=== PATIENT | male | born 1970 | race Caucasian/White ===

== ENCOUNTER → 2017-11-04 | Emergency (ER) | payer BC ==
[~2017-11-04] VITALS: Ht 180.3 cm; Wt 113.4 kg
[~2017-11-04] MED LIST: DURAGESIC1 EAC4 TD; FENTANYL1 EACH TD; HYDROCODON-ACE1 EAC8 PO; NITROGLYCERIN0.4 MG SL; PERCOCET 5-3251 EACH PO; SENNA PLUS TAB1 EACH PO; TOPROL XL25 MG PO; ZOFRAN ODT4 MG PO
--- NOTE | 2017-11-06 14:04 | EKG ---
[facility] [address] [facility] [place] [address] Signed Normal sinus rhythm Borderline ECG No previous ECGs available Confirmed by OLVIN CRUZ MD ([id number] on 11/06/2017 2:04:49 PM Electronically Signed By: OLVIN CRUZ MD 11/06/17 1404 PATIENT NAME: JOEY JARAMILLO Electrocardiogram DATE OF : 68 PHYSICIAN: OLVIN CRUZ MD REPORT #: [id number] REPORT IS CONFIDENTIAL AND NOT TO BE RELEASED WITHOUT AUTHORIZATION
== END ==
LOC: ED 13:25
DX: R07.89 Other chest pain (principal); M54.9 Dorsalgia, unspecified; F17.200 Nicotine dependence, unspecified, uncomplicated
CPT/HCPCS: 71046; 80053; 83690; 84484; 85025; 93005; 93010; 99284

== ENCOUNTER 2017-11-27 20:41 | Emergency (ER) | payer BC ==
[~2017-11-27] VITALS: Ht 182.9 cm; Wt 112.5 kg
[~2017-11-27 20:41] MED LIST changes: -DURAGESIC1 EAC4 TD; -FENTANYL1 EACH TD; -PERCOCET 5-3251 EACH PO; -SENNA PLUS TAB1 EACH PO; -ZOFRAN ODT4 MG PO
[2017-12-07] MEDS ORDERED: PERCOCET 5-3251 EACH PO (10:00)
[2017-12-07] MEDS ORDERED: SENNA PLUS TAB1 EACH PO (10:01)
[2017-12-07] MEDS ORDERED: ZOFRAN ODT4 MG PO (10:02)
[2017-12-07] MEDS ORDERED: DURAGESIC1 EAC4 TD (10:02)
[2017-12-07] MEDS ORDERED: FENTANYL1 EACH TD (12:03)
== END 2017-11-27 21:26 | disposition home or self-care (01) ==
LOC: ED 20:41
DX: Z76.0 Encounter for issue of repeat prescription (principal); G89.3 Neoplasm related pain (acute) (chronic); R11.0 Nausea; C25.9 Malignant neoplasm of pancreas, unspecified; F17.200 Nicotine dependence, unspecified, uncomplicated; Z79.899 Other long term (current) drug therapy
CPT/HCPCS: 99281

== ENCOUNTER → 2017-12-07 | Emergency (ER) | payer BC ==
[~2017-12-07] VITALS: Ht 182.9 cm; Wt 112.5 kg
[~2017-12-07] MED LIST changes: +DURAGESIC1 EAC4 TD; +FENTANYL1 EACH TD; +PERCOCET 5-3251 EACH PO; +SENNA PLUS TAB1 EACH PO; +ZOFRAN ODT4 MG PO
--- OUTSIDE RECORDS SUMMARY | ~2017-12-07 | XMS | Clinical Summary ---
Demographics + + + | Address | [address] | | | [place] [address] | + + + | Home Phone | | + + + | Preferred Language | Unknown | + + + | Marital Status | Unmarried Domestic Partner | + + + | Synagogue Affiliation | CHR | + + + | Race | White | + + + | Ethnic Group | Not or | + + + Author + + + | Author | [facility] | + + + | Organization | [facility] | + + + | Address | Unknown | + + + | Phone | Unavailable | + + + Support + + + + + | Name | Relationship | Address | Phone | + + + + + | ROXANN BAÑUELOS | KAYE | [address] | | | | | # [place] | | | | | [address] | | + + + + + Care Team Providers + +------+ + | Care Professor Of Archaeology Name | Role | Phone | + +------+ + | Pepe Oakley DO | PP | | + +------+ + Source Comments EDY is fully live on both [facility] and [facility] InPatient.[facility] Allergies No Known Allergies Current Medications + + +--------+---------+------+------+-------+ | Prescription | Sig. | Disp. | Refills | Star | End | Statu | | | | | | t | Date | s | | | | | | Date | | | + + +--------+---------+------+------+-------+ | fentaNYL 12 mcg/hr | Apply 1 patch to | | | | | Activ | | transdermal patch | skin every | | | | | e | | | seventy-two hours. | | | | | | | | Please remove old | | | | | | | | patch prior to | | | | | | | | placing a new one. | | | | | | + + +--------+---------+------+------+-------+ | ondansetron ODT 4 | Dissolve 4 mg on | | | | | Activ | | mg oral | tongue and swallow | | | | | e | | tablet,disintegratin | every twelve hours | | | | | | | g | as needed. | | | | | | + + +--------+---------+------+------+-------+ | oxyCODONE | Take 4 tablets by | 90 | 0 | 03/2 | | Activ | | (immediate release) | mouth every six | tablet | | 7/20 | | e | | 5 mg oral | hours as needed for | | | 18 | | | | tabletIndications: | breakthrough pain. | | | | | | | Pain | Indications: Pain | | | | | | + + +--------+---------+------+------+-------+ | senna-docusate | Take 1 tablet by | 60 | 0 | 03/2 | | Activ | | 8.6-50 mg oral | mouth two times | tablet | | 7/20 | | e | | tablet | daily. | | | 18 | | | + + +--------+---------+------+------+-------+ Active Problems + + + | Problem | Noted Date | + + + | Pancreatic adenocarcinoma (HCC) | 12/06/2017 | + + + | Pancreatic mass | 12/03/2017 | + + + | Liver mass | 12/03/2017 | + + + | Hyperbilirubinemia | 12/03/2017 | + + + | Obstructive jaundice | 12/03/2017 | + + + Encounters +--------+ + + + + | Date | Type | Specialty | Care Team | Description | +--------+ + + + + | 12/05/ | Procedure | | | | | 2017 | Pass | | | | +--------+ + + + + | 12/05/ | Procedure | | | | | 2017 | Pass | | | | +--------+ + + + + | 12/05/ | Anesthesia | | Iglesia García, | | | 2017 | Event | | MD | | +--------+ + + + + | 12/05/ | Inside | | Maureen Fu MD | | | 2017 | Referral | | | | | | Order | | | | +--------+ + + + + | 12/03/ | Hospital | | Esperanza Modi, | | | 2018 - | Encounter | | PhD Katrin HATHAWAY Stan | | | | | | MD Hill Soto Rebekah | | | 12/06/ | | | MD Tank Higuera Bailey | | | 2018 | | | MD Alverto Higuera, | | | | | | Demian MD Kalen | | +--------+ + + + + +---+ + | | Discharge | | | Summaries | | | - Alverto, | | | Demian | | | MD Kalen - | | | 12/06/2017 | | | 10:10 AM | | | PDT | | | Formatting | | | of this | | | note may be | | | different | | | from the | | | original.Cl | | | inical | | | Hospitalist | | | Discharge | | | SummaryPCP: | | | Pepe | | | DO Karthikeyan | | | Author: | | | Demian | | | Alverto, | | | , | | | PhDDischarg | | | ing | | | Physician: | | | Demian | | | Alverto, | | | PhD MAG | | | Admission | | | Date: | | | 12/03/2017 | | | Discharge | | | Date: | | | 12/06/2017 | | | Principal | | | Final | | | Diagnosis: | | | 1) | | | Pancreatic | | | adenocarcin | | | amie | | | (HCC)Additi | | | onal | | | Diagnoses: | | | 1) | | | *Pancreatic | | | mass2) | | | Liver | | | mass3) | | | Hyperbiliru | | | binemia4) | | | Obstructive | | | | | | jaundicePro | | | cedures:Pro | | | cedures | | | 12/05/2017 - | | | ERCP/EUS | | | and biopsy | | | Reason For | | | Admission: | | | Ronni A | | | May is a 47 | | | y.o. Male | | | w/ hx of | | | pancreatic | | | cancer | | | diagnosed 3 | | | weeks ago | | | and | | | scheduled | | | for EUS | | | here | | | 12/16/17, and | | | presents | | | to [facility] for | | | acutely | | | worsening | | | abdominal | | | pain and 3 | | | days of new | | | onset | | | jaundice. | | | Hospital | | | Course: # | | | Pancreatic | | | Adenocarcin | | | amie (?)# | | | Obstructive | | | jaundice# | | | Transaminit | | | is# | | | Pancreatic | | | head | | | massPancrea | | | tic mass | | | first noted | | | Mar 6 that | | | | | | incorporate | | | s portal | | | vein and | | | enlarged | | | periportal | | | LNs, | | | several | | | ill-defined | | | liver | | | lesons and | | | in | | | outpatient | | | surgical | | | consultatio | | | n was | | | deemed | | | unresectabl | | | e. At that | | | time, had | | | severe abd | | | pain with | | | 10 lb | | | weight loss | | | and over | | | the past | | | month has | | | lost an | | | additional | | | 20 lbs by | | | report. CA | | | 19-9 >1200. | | | Had an EGD | | | done [facility] | | | in | | | [facility] | | | without | | | visualized | | | tumor | | | penetrating | | | into | | | antrum or | | | duodenum, | | | no bx | | | taken. On | | | transfer | | | to [facility], | | | his T bili | | | was 14.3 | | | and peaked | | | at 20, with | | | AST/ALT on | | | admission | | | 103/657 on | | | admission. | | | He | | | underwent | | | ERCP + EUS | | | and bx | | | completed | | | on | | | 12/05/2017 | | | with metal | | | stent | | | placement, | | | prelim | | | pathology | | | with | | | adenocarcin | | | amie. These | | | findings | | | were | | | discussed | | | with | | | oncology | | | who noted | | | that he | | | needed a CT | | | | | | abdomen/pel | | | vis | | | (pancreas | | | protocol) | | | and CT | | | chest prior | | | to making | | | decisions | | | about | | | treatment. | | | These were | | | obtained | | | on day of | | | discharge | | | with | | | results | | | pending at | | | time of | | | discharge. | | | LFTs on | | | day of | | | discharge/d | | | ay after | | | metal stent | | | placement | | | showed | | | significant | | | | | | improvement | | | in T bili | | | and | | | AST/ALT. | | | He was seen | | | by [facility] | | | Surgery as | | | well, who | | | recommended | | | a Genetics | | | referral | | | given his | | | young age | | | of | | | pancreatic | | | cancer and | | | family hx | | | of breast | | | cancer and | | | thyroid | | | cancer.-Has | | | Oncology | | | follow-up | | | on | | | 12/12-Referra | | | l to our | | | Gold | | | surgery-Ref | | | erral to | | | Genetics # | | | Abdominal | | | PainPatient | | | with | | | significant | | | cancer | | | pain, | | | difficult | | | to control | | | without | | | regular | | | oral | | | medications | | | . Continued | | | home | | | fentanyl | | | patch | | | discussed | | | transition | | | from home | | | [place]jou to | | | oxycodone. | | | On day of | | | discharge, | | | he | | | requested | | | that | | | oxycodone | | | be used in | | | place of | | | norco as | | | oxy | | | provides | | | optimal | | | pain | | | relief. | | | Thus will | | | continue | | | home | | | fentanyl | | | patch and | | | oxycodone | | | q6h prn for | | | | | | breakthroug | | | h pain. | | | His | | | abdominal | | | pain | | | improved | | | significant | | | ly after | | | metal stent | | | | | | placement. 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 | | | [facility] | | | | | | Surgery/Dr. | | | | | | SheppardIma | | | ges/procedu | | | res:US | | | Liver | | | 12/03/17IMPR | | | ESSION:1. | | | Known | | | pancreatic | | | mass is | | | incompletel | | | y evaluated | | | due to | | | bowel gas. | | | 2. | | | Intra-and | | | extrahepati | | | c biliary | | | dilatation | | | is mildly | | | increased | | | since | | | 11/15/2017.3. 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 | | | The | | | esophagus | | | was | | | successfull | | | y intubated | | | | | | under | | | direct | | | vision. The | | | scope was | | | advanced to | | | a normal | | | major | | | papilla in | | | the | | | descending | | | duodenum | | | without | | | detailed | | | examination | | | of the | | | pharynx, | | | | | | larynx and | | | associated | | | structures, | | | and upper | | | GI tract. | | | The upper | | | GI tract | | | was | | | grossly | | | normal. A | | | straight | | | 0.035 inch | | | Tracer | | | Metro | | | Direct wire | | | was | | | passed | | | into the | | | biliary | | | tree. The | | | Fusion OMNI | | | | | | sphincterot | | | ome was | | | passed | | | over | | | the | | | guidewire | | | and the | | | bile duct | | | was then | | | deeply | | | cannulated. | | | | | | Contrast | | | was | | | injected. I | | | personally | | | | | | interpreted | | | the bile | | | duct | | | images. | | | | | | Ductal flow | | | of | | | contrast | | | was | | | adequate. | | | Image | | | quality was | | | adequate. | | | | | | Contrast | | | extended to | | | the entire | | | biliary | | | tree. The | | | lower third | | | of the | | | | | | main bile | | | duct | | | contained a | | | single | | | severe | | | stenosis 20 | | | mm in | | | length. The | | | | | | middle | | | third of | | | the main | | | bile duct, | | | upper third | | | of the | | | main bile | | | duct | | | and left | | | and right | | | hepatic | | | ducts and | | | all | | | intrahepati | | | c branches | | | were | | | severely | | | and | | | diffusely | | | dilated. | | | One 10 mm | | | by 6 cm | | | bare metal | | | stent was | | | | | | placed 5.5 | | | cm into the | | | common | | | bile duct. | | | Bile flowed | | | through | | | the stent. | | | The | | | stent was | | | in good | | | position.Im | | | pression: | | | | | | - A | | | severe | | | biliary | | | stricture | | | was found. | | | The | | | stricture | | | | | | | | | | | | was | | | malignant | | | appearing. | | | This was | | | treated | | | with | | | placement | | | | | | | | | | | | of bare | | | metal stent | | | into the | | | common bile | | | | | | duct.Releva | | | nt | | | HPI/Exam/La | | | bs:Discharg | | | e physical | | | examVital | | | Signs at | | | discharge:B | | | P: 141/70 | | | | | | (12/06/17 | | | 0625) | | | Pulse: 73 | | | | | | (12/06/17 | | | 0625) | | | Resp: 16 | | | | | | (12/06/17 | | | 0625) | | | Weight: | | | 110.2 kg | | | (243 lb) | | | | | | (12/05/17 | | | 1300) Body | | | mass index | | | is 32.96 | | | kg/m .Disc | | | harge | | | weight:- Wt | | | Readings | | | from Last 1 | | | | | | Encounters: | | | 12/05/17 | | | 110.2 kg | | | (243 lb) | | | Gen: | | | Walking | | | halls, NAD, | | | visibly | | | jaundicedHE | | | ENT: EOMI, | | | scleral | | | icterusCV:R | | | RR, nl | | | s1/s2, no | | | mrgPulm:cta | | | bAbd: soft, | | | | | | non-tender, | | | | | | non-distend | | | edExt: no | | | edemaNeuro: | | | A&O x3, | | | freely | | | moving all | | | extremities | | | , normal | | | gaitLabs at | | | Discharge: | | | Lab | | | Results | | | Component | | | Value Date | | | NA 137 | | | 12/06/2017 | | | K 3.6 | | | 12/06/2017 | | | CL 102 | | | 12/06/2017 | | | BICARB 26 | | | 12/06/2017 | | | BUN 11 | | | 12/06/2017 | | | CR 0.65 | | | 12/06/2017 | | | GLU 101 | | | 12/06/2017 | | | CA 8.5 | | | 12/06/2017 | | | AST 68 | | | 12/06/2017 | | | ALT 217 | | | 12/06/2017 | | | AP 609 | | | 12/06/2017 | | | TBILI 9.4 | | | 12/06/2017 | | | TP 6.4 | | | 12/06/2017 | | | ALB 3.0 | | | 12/06/2017 | | | Lab Results | | | Component | | | Value Date | | | WBC 9.74 | | | 12/06/2017 | | | RBC 4.52 | | | 12/06/2017 | | | HB 12.3 | | | (L) | | | 12/06/2017 | | | HCT 36.3 | | | (L) | | | 12/06/2017 | | | MCV 80.3 | | | 12/06/2017 | | | MCHC 33.9 | | | 12/06/2017 | | | RDW 49.1 | | | (H) | | | 12/06/2017 | | | PLT 280 | | | 12/06/2017 | | | MPV 10.1 | | | 12/06/2017 | | | NRBCPERC | | | 0.0 | | | 12/06/2017 | | | NRBCABS | | | 0.00 | | | 12/06/2017 | | | Lab Results | | | Component | | | Value Date | | | INRPT 0.96 | | | 12/05/2017 | | | Lab | | | Results | | | Component | | | Value Date | | | CEA 2.4 | | | 12/06/2017 | | | Outstanding | | | | | | labs/studie | | | s: EUS | | | biopsy Core | | | | | | Measures:Di | | | agnosis of | | | CHF: No | | | Medication | | | List START | | | taking | | | these | | | medications | | | oxyCODONE | | | (immediate | | | release) 5 | | | mg | | | TabCommonly | | | known as: | | | | | | ROXICODONET | | | efrain 4 | | | tablets by | | | mouth every | | | six hours | | | as needed | | | for | | | breakthroug | | | h pain. | | | Indications | | | : Pain | | | senna-docus | | | ate 8.6-50 | | | mg | | | TabCommonly | | | known as: | | | SENOKOT | | | STake 1 | | | tablet by | | | mouth two | | | times | | | daily. | | | CONTINUE | | | taking | | | these | | | medications | | | fentaNYL | | | 12 mcg/hr | | | patchCommon | | | ly known | | | as: | | | DURAGESICAp | | | ply 1 patch | | | to skin | | | every | | | seventy-two | | | hours. | | | Please | | | remove old | | | patch prior | | | to placing | | | a new one. | | | | | | ondansetron | | | ODT 4 mg | | | TbdiCommonl | | | y known as: | | | ZOFRAN | | | ODTDissolve | | | 4 mg on | | | tongue and | | | swallow | | | every | | | twelve | | | hours as | | | needed. | | | STOP taking | | | these | | | medications | | | | | | HYDROcodone | | | -acetaminop | | | hen 10-325 | | | mg | | | TabCommonly | | | known as: | | | NORCO | | | Allergies: | | | No Known | | | AllergiesFo | | | llow-up | | | Appointment | | | s:Future | | | Appointment | | | s | | | Provider | | | Department | | | Dept Phone | | | Center | | | 12/12/2017 | | | 8:30 AM | | | [facility] | | | [facility] | | | Cancer | | | Center - | | | Medical | | | Oncology | | | [phone] | | | [facility] | | | [facility] | | | 12/12/2017 | | | 2:20 PM [facility] | | | PHONE/RN | | | CLIN [facility] | | | Preoperativ | | | e Medicine | | | Clinic at | | | [facility] 4[facility] | | | Floor Day | | | Stay | | | [phone] | | | 0 [facility] | | | 12/16/2017 | | | 12:15 PM | | | [facility] | | | [facility] | | | Digestive | | | Health | | | Center at | | | [facility] 4[facility] | | | Floor | | | [phone] | | | 3 Dig | | | Health | | | Additional | | | Instruction | | | s/Orders:Di | | | et Regular | | | Regular | | | diet- There | | | are no | | | restriction | | | s to your | | | diet. You | | | may eat or | | | drink | | | whatever | | | you prefer, | | | though | | | healthy | | | food | | | choices are | | | | | | recommended | | | . Activity | | | No activity | | | | | | restriction | | | s Condition | | | on | | | Discharge | | | Good Who To | | | Call For | | | Problems | | | HOW TO | | | REACH YOUR | | | MEDICINE | | | TEAM WITH | | | QUESTIONS, | | | CONCERNS, | | | OR NEW | | | SYMPTOMS: | | | Thank you | | | for | | | entrusting | | | your care | | | to [facility] | | | Internal | | | Medicine. | | | If you have | | | any | | | problems or | | | concerns | | | before you | | | are able to | | | follow up | | | with your | | | Primary | | | Care | | | Provider, | | | please call | | | [phone] | | | [phone] | | | and ask the | | | soldering machine operator | | | to page the | | | attending | | | physician, | | | Maureen A | | | MD Tank, | | | who was | | | caring for | | | you at | | | discharge. | | | If that | | | physician | | | is not | | | available, | | | ask the | | | soldering machine operator to | | | page the | | | physician | | | seasonal package handler for | | | the | | | Clinical | | | Hospitalist | | | | | | Service.Ezio | | | l us right | | | away if any | | | of the | | | following | | | occur:-You | | | have | | | new/worseni | | | ng | | | abdominal | | | pain-You've | | | noticed | | | that you | | | are turning | | | more | | | yellowDisch | | | arge | | | Destination | | | : Home Code | | | Status: | | | FullPOLST | | | completed: | | | no | | | Discharging | | | Physician: | | | Demian | | | Alverto, | | | MD, | | | PhDAttendin | | | g | | | Physician: | | | Demian | | | Al[place], | | | MD, PhD I | | | spent more | | | than 33 | | | minutes | | | face-to-fac | | | e with the | | | patient of | | | which | | | greater | | | than 50% | | | was spent | | | counseling | | | the patient | | | and in | | | coordinatin | | | g care with | | | Nursing | | | and [facility] | | | Surgery. | +---+ + +--------+ +---+ + + | 12/02/ | Outside | | Ronnell Pabon MD | | | 2018 | Referral | | | | | | Order | | | | +--------+ +---+ + + | 12/02/ | [facility] Specialist | | Albaro Vences | Pancreatic mass | | 2017 | | | MD Wenceslao | (Primary Dx) | +--------+ +---+ + + | 12/02/ | Documentati | | Lab, Gi Procedure | Medical Records | | 2017 | on | | | Review | +--------+ +---+ + + from Last 3 Months Family History + + +------+ + | Medical History | Relation | Name | Comments | + + +------+ + | None | Father | | | + + +------+ + | Cancer | Mother | | Breast | + + +------+ + | Thyroid | Mother | | | + + +------+ + + +------+--------+ + | Relation | Name | Status | Comments | + +------+--------+ + | Father | | | | + +------+--------+ + | Mother | | | | + +------+--------+ + Social History + + + +--------+------+ | Tobacco Use | Types | Packs/Day | Years | Date | | | | | Used | | + + + +--------+------+ | Current Every Day | Cigarettes | 2 | 30 | | | Smoker | | | | | + + + +--------+------+ + +---+---+---+ | Smokeless Tobacco: | | | | | Never Used | | | | + +---+---+---+ + + +---------+ + | Alcohol Use | Drinks/We | oz/Week | Comments | | | ek | | | + + +---------+ + | No | | | never alcoholic | + + +---------+ + + + + | Sex Assigned at | Date Recorded | | | | + + + | Not on file | | + + + Last Filed Vital Signs + + + + | Vital Sign | Reading | Time Taken | + + + + | Blood Pressure | 129/65 | 12/06/2017 8:40 AM PDT | + + + + | Pulse | 85 | 12/06/2017 8:40 AM PDT | + + + + | Temperature | 36.9 C (98.4 F) | 12/06/2017 8:40 AM PDT | + + + + | Respiratory Rate | 16 | 12/06/2017 8:40 AM PDT | + + + + | Oxygen Saturation | 95% | 12/06/2017 8:40 AM PDT | + + + + | Inhaled Oxygen | - | - | | Concentration | | | + + + + | Weight | 110.2 kg (243 lb) | 12/05/2017 1:00 PM PDT | + + + + | Height | 182.9 cm (6') | 12/05/2017 1:00 PM PDT | + + + + | Body Mass Index | 32.96 | 12/05/2017 1:00 PM PDT | + + + + Plan of Treatment +--------+ + + + + | Date | Type | Specialty | Care Team | Description | +--------+ + + + + | 12/12/ | Office | | Fang Barton, | | | 2017 | Visit | | [address] | | | | | | [place] | | | | | | [address] | | | | | | [phone] | | | | | | | | +--------+ + + + + | 12/12/ | Telephone-S | | | | | 2017 | cheyessicaled | | | | +--------+ + + + + | 12/16/ | Hospital | | Barney Leger, | | | 2018 | Encounter | | [address] | | | | | | [address] | | | | | | [place], [place] | | | | | | [address] | | | | | | [phone] | | | | | | | | +--------+ + + + + | 12/16/ | Appointment | | Barney Leger, | | | 2017 | | | [address] | | | | | | [address] | | | | | | [place], [place] | | | | | | [address] | | | | | | [phone] | | | | | | | | +--------+ + + + + + + + + + | Health Maintenance | Due Date | Last Done | Comments | + + + + + | INFLUENZA VACCINE | | | | | (FLU SHOT) | 7 | | | + + + + + Procedures + +--------+ + + + | Procedure Name | Priori | Date/Time | Associated Diagnosis | Comments | | | ty | | | | + +--------+ + + + | ERCP | Routin | 12/05/2017 | Hyperbilirubinemia | Results for this | | | e | 2:13 PM | | procedure are in the | | | | PDT | | results section. | + +--------+ + + + | EUS UPPER | Routin | 12/05/2017 | Hyperbilirubinemia | Results for this | | | e | 1:38 PM | | procedure are in the | | | | PDT | | results section. | + +--------+ + + + from Last [address] MULTIPHASE PANCREAS AND PELVIS W IV CONTRAST (12/06/2017 10:28 AM) + + + | Specimen | Performing Laboratory | + + + | | [facility] | + + + + + | Narrative | + + | EXAM: Pancreas protocol CT of the abdomen with and without contrast. CT of the | | chest, abdomen pelvis with intravenous contrast. HISTORY: Pancreatic cancer | | COMPARISON: Outside study 11/15/17 TECHNIQUE: Unenhanced, arterial, and portal venous | | abdominal CT with 125 mL Omnipaque 350 non-ionic intravenous contrast. CT of the | | chest, abdomen, and pelvis performed in the portal venous phase. Coronal and sagittal | | reformats were reviewed. FINDINGS: THORAX: Calcified nodule within the right | | thyroid gland (19/8) measuring 9 mm. No axillary, or mediastinal adenopathy. No | | cardiomegaly. No significant pericardial effusion. Trace fluid noted within the | | pericardium measuring up to 4 mm (127/80). The lungs are clear without evidence of | | suspicious nodule. Bibasilar scarring and atelectasis. No pleural effusion. | | PANCREATICOBILIARY: Again identified is an infiltrative mass centered at the head of the | | pancreas extending to the neck of the pancreas with desmoplastic response in | | infiltrative soft tissue extending to the level of the celiac artery. On today's | | examination, the mass measures 6.4 x 4.2 cm (197/8). No significant ductal dilatation or | | atrophy mild inflammatory changes of the body and tail of pancreas likely | | postprocedural status post stent placement. Arterial Invasion: YES. Complete encasement | | of the hepatic artery (86/05). Soft tissue encroaching upon the superior mesenteric | | artery Variant Arterial Anatomy: YES the right hepatic artery is replaced and | | originates from the superior mesenteric artery, and traverses the mass with severe | | attenuation in a 360deg fashion (100/5). Portal/Mesenteric Venous Invasion: Complete | | encasement of the portal vein, with recanalization at the level of the hilum (203/8). | | The mass likely invades the portal vein at this segment, however recannulized segments | | do not demonstrate portal venous thrombosis. Regional Nodes: Retroperitoneal | | enlarged lobulated lymph node measuring 2.1 x 3.9 cm (180/8). Gallbladder decompressed. | | Intrahepatic biliary ductal dilatation has been ameliorated by A. common biliary ductal | | stent. LIVER: Innumerable low density lesions scattered throughout the liver | | parenchyma, some of which are well-circumscribed and likely characterized as simple | | cysts. Others are too small to fully characterize, and are suspicious for metastasis | | (127/80) within segment 7/8 measuring 5 mm; 8 mm (158/80) within segment 7/8;. SPLEEN: | | Unremarkable. ADRENALS: Unremarkable. KIDNEYS/URETERS: Unremarkable. PELVIC | | ORGANS: Unremarkable. PERITONEUM: Mild peritoneal thickening along the left | | paracolic cutter (third 49/8 without measurable nodularity, suspicious for | | carcinomatosis. LYMPH NODES: Borderline retroperitoneal adenopathy. VESSELS: Moderate | | atherosclerotic burden. No aneurysm. GI TRACT: No small bowel obstruction. No focal | | mass lesion. The mass likely invades and involves the first through third portions of | | the duodenum which are mildly thick walled. The stomach is mildly thick walled as well | | like the reactive. No evidence of obstruction. Normal appendix. Scattered diverticulosis | | without inflammatory change to suggest diverticulitis. BONES AND SOFT TISSUES: | | Unremarkable. IMPRESSION: Locally advanced pancreatic cancer, with involvement | | of the common hepatic, and replaced right hepatic artery, and complete encasement of the | | portal vein with recanalization at the level of the intrahepatic system. Possible | | metastatic disease to the liver and peritoneum. MRI would be helpful for further | | characterization of hepatic lesions and overall metastatic burden as a baseline. | | I have personally reviewed the images and, if necessary, edited the report. I agree | | with the report as now presented. | + + + + | Procedure Note | + + | Service Account, Radiant Res In Interface - 12/06/2017 11:09 AM PDT EXAM: Pancreas | | protocol CT of the abdomen with and without contrast. CT of the chest, abdomen pelvis | | with intravenous contrast.HISTORY: Pancreatic cancerCOMPARISON: Outside study | | 11/15/17TECHNIQUE: Unenhanced, arterial, and portal venous abdominal CT with 125 mL | | Omnipaque 350 non-ionic intravenous contrast. CT of the chest, abdomen, and pelvis | | performed in the portal venous phase. Coronal and sagittal reformats were | | reviewed.FINDINGS:THORAX: Calcified nodule within the right thyroid gland (19/8) | | measuring 9 mm. No axillary, or mediastinal adenopathy. No cardiomegaly. No significant | | pericardial effusion. Trace fluid noted within the pericardium measuring up to 4 mm | | (127/80).The lungs are clear without evidence of suspicious nodule. Bibasilar scarring | | and atelectasis. No pleural effusion.PANCREATICOBILIARY: Again identified is an | | infiltrative mass centered at the head of the pancreas extending to the neck of the | | pancreas with desmoplastic response in infiltrative soft tissue extending to the level | | of the celiac artery. On today's examination, the mass measures 6.4 x 4.2 cm (197/8). No | | significant ductal dilatation or atrophy mild inflammatory changes of the body and tail | | of pancreas likely postprocedural status post stent placement.Arterial Invasion: YES. | | Complete encasement of the hepatic artery (86/05). Soft tissue encroaching upon the | | superior mesenteric arteryVariant Arterial Anatomy: YES the right hepatic artery is | | replaced and originates from the superior mesenteric artery, and traverses the mass with | | severe attenuation in a 360deg fashion (100/5).Portal/Mesenteric Venous Invasion: | | Complete encasement of the portal vein, with recanalization at the level of the hilum | | (203/8). The mass likely invades the portal vein at this segment, however recannulized | | segments do not demonstrate portal venous thrombosis.Regional Nodes: Retroperitoneal | | enlarged lobulated lymph node measuring 2.1 x 3.9 cm (180/8).Gallbladder decompressed. | | Intrahepatic biliary ductal dilatation has been ameliorated by A. common biliary ductal | | stent.LIVER: Innumerable low density lesions scattered throughout the liver parenchyma, | | some of which are well-circumscribed and likely characterized as simple cysts. Others | | are too small to fully characterize, and are suspicious for metastasis (127/80) within | | segment 7/8 measuring 5 mm; 8 mm (158/80) within segment 7/8;.SPLEEN: | | Unremarkable.ADRENALS: Unremarkable.KIDNEYS/URETERS: Unremarkable.PELVIC ORGANS: | | Unremarkable.PERITONEUM: Mild peritoneal thickening along the left paracolic cutter | | (third 49/8 without measurable nodularity, suspicious for carcinomatosis.LYMPH NODES: | | Borderline retroperitoneal adenopathy.VESSELS: Moderate atherosclerotic burden. No | | aneurysm.GI TRACT: No small bowel obstruction. No focal mass lesion. The mass likely | | invades and involves the first through third portions of the duodenum which are mildly | | thick walled. The stomach is mildly thick walled as well like the reactive. No evidence | | of obstruction. Normal appendix. Scattered diverticulosis without inflammatory change to | | suggest diverticulitis.BONES AND SOFT TISSUES: Unremarkable.IMPRESSION:Locally advanced | | pancreatic cancer, with involvement of the common hepatic, and replaced right hepatic | | artery, and complete encasement of the portal vein with recanalization at the level of | | the intrahepatic system.Possible metastatic disease to the liver and peritoneum. MRI | | would be helpful for further characterization of hepatic lesions and overall metastatic | | burden as a baseline.I have personally reviewed the images and, if necessary, edited the | | report. I agree with the report as now presented. | + + CBC (HEMOGRAM) ONLY (12/06/2017 5:30 AM)Only the most recent of 2 results within the time period is included. + + + + | Component | Value | Ref Range | + + + + | WHITE CELL COUNT | 9.74 | 3.50 - 10.80 K/cu mm | + + + + | RED CELL COUNT | 4.52 | 4.50 - 6.00 M/cu mm | + + + + | HEMOGLOBIN | 12.3 (L) | 13.5 - 17.5 g/dL | + + + + | HEMATOCRIT | 36.3 (L) | 41.0 - 53.0 % | + + + + | MCV | 80.3 | 80.0 - 96.0 fL | + + + + | MCHC | 33.9 | 33.0 - 35.5 g/dL | + + + + | RDW SD | 49.1 (H) | 35.1 - 46.3 fL | + + + + | PLATELET COUNT | 280 | 150 - 400 K/cu mm | + + + + | MPV | 10.1 | 9.7 - 12.3 fL | + + + + | NRBC% | 0.0 | 0.0 - 0.3 % | + + + + | NRBC# | 0.00 | 0.00 - 0.02 K/cu mm | + + + + + + + | Specimen | Performing Laboratory | + + + | Blood | [facility], [facility] [address] | | | [facility] [address] | + + + CARCINOEMBRYONIC AG, SERUM (12/06/2017 5:30 AM) + +-------+ + | Component | Value | Ref Range | + +-------+ + | CEA-CARCINOEMBRYONIC | 2.4 | <=2.5 ng/mL | | AG, SERUM | | | + +-------+ + + + + | Specimen | Performing Laboratory | + + + | Blood | [facility], [address] [address] | | | [place] [address] | + + + COMPLETE METABOLIC SET (NA,K,CL,CO2,BUN,CREAT,GLUC,CA,AST,ALT,BILI TOTAL,ALK PHOS,ALB,PROT TOTAL) (12/06/2017 5:30 AM)Only the most recent of 4 results within the time period is incl uded. + + + + | Component | Value | Ref Range | + + + + | GLUCOSE, PLASMA | 101 (H) | 70 - 99 mg/dL | | (LAB) | | | + + + + | BUN, PLASMA (LAB) | 11 | 6 - 20 mg/dL | + + + + | CREATININE PLASMA | 0.65 (L) | 0.70 - 1.30 mg/dL | | (LAB) | | | + + + + | EGFR - | >60 | >60 mL/min | | [place] | | | + + + + | EGFR NON | >60 | >60 mL/min | | -MONEGASQUE | | | + + + + | SODIUM, PLASMA (LAB) | 137 | 136 - 145 mmol/L | + + + + | POTASSIUM, PLASMA | 3.6 | 3.4 - 5.0 mmol/L | | (LAB) | | | + + + + | CHLORIDE, PLASMA | 102 | 97 - 108 mmol/L | | (LAB) | | | + + + + | TOTAL CO2, PLASMA | 26 | 21 - 32 mmol/L | | (LAB) | | | + + + + | CALCIUM, PLASMA | 8.5 (L) | 8.6 - 10.2 mg/dL | | (LAB) | | | + + + + | CALCIUM(ALB | 9.3 | 8.6 - 10.2 mg/dL | | CORRECTED) | | | + + + + | BILIRUBIN TOTAL | 9.4 (H) | 0.3 - 1.2 mg/dL | + + + + | TOTAL PROTEIN, | 6.4 | 6.4 - 8.2 g/dL | | PLASMA (LAB) | | | + + + + | ALBUMIN, PLASMA | 3.0 (L) | 3.5 - 4.7 g/dL | | (LAB) | | | + + + + | ALK PHOS | 609 (H) | 53 - 128 U/L | + + + + | AST(SGOT) | 68 (H) | <=41 U/L | + + + + | ALT (SGPT) | 217 (H) | <=60 U/L | + + + + | ANION GAP | 9 | 4 - 11 mmol/L | + + + + | ANION GAP(ALB | 11 | 4 - 11 mmol/L | | CORRECTED) | | | + + + + | POTASSIUM CMNT | No Hemo | | + + + + | BILI T CMNT | No Hemo | | + + + + | AST CMNT | No Hemo | | + + + + + + + | Specimen | Performing Laboratory | + + + | Blood | [facility], [facility] [place] [address] | | | [place] [address] | + + + + + | Narrative | + + | Adult glucose reference range change effective 03-23-17. GFR is estimated using the | | MDRD equation recommended by the National Kidney Disease Education Program. | | Estimated GFR Interpretive Information: <60 mL/min/1.73 sq | | m Chronic Kidney Disease <15 mL/min/1.73 sq | | m Kidney Failure Estimated GFR greater that 60 mL/min/1.73 | | sq m is of limited clinical value. The MDRD equation is not valid in the following | | situations: - Patients under 18 years of age - Severe malnutrition or obesity - | | Vegetarian diet - Rapidly changing kidney function | + + CANCER AG GI (19-), SERUM (12/06/2017 5:30 AM) + + + + | Component | Value | Ref Range | + + + + | CANCER AG GI (19-9) | 2,371.5 (H) | <=37.0 U/mL | | [facility] | | | + + + + + + + | Specimen | Performing Laboratory | + + + | Blood | [facility], [address] [place] [address] | | | [place] [address] | + + + CBC ONLY (12/06/2017 5:30 AM)Only the most recent of 2 results within the time period is i ncluded. + + + | Specimen | Performing Laboratory | + + + | Blood | | + + + + + | Narrative | + + | The following orders were created for panel order CBC ONLY. | | Procedure | | Abnormality Status | | --------- | | ------ CBC (HEMOGRAM) | | ONLY[[id number]] Abnormal Final | | result Please view results for these tests on the | | individual orders. | + + ERCP (12/05/2017 2:13 PM) + + + | Specimen | Performing Laboratory | + + + | | [facility] | + + + + + | Narrative | + + | Procedure Date: 12/05/2017 Patient Name: Ronni Napier #: [id number] | | Date of : 1970 CSN: [id number] Admit Type: Inpatient Room: GI 3 | | Procedure: ERCP Indications: Jaundice, Malignant | | tumor of the head of pancreas Providers: BARNEY LEGER MD | | (Doctor), NJ CROWLEY RN (Nurse), SCOTTY | | (Meat Dresser), DORIS STALLINGS, | | Meat Dresser (Meat Dresser) Referring MD: AUDI KAMINSKI MD Requesting | | Provider: Medicines: Monitored Anesthesia Care | | Complications: No immediate complications. Procedure: | | Pre-Anesthesia Assessment: - Pre-procedure | | physical examination revealed no | | contraindications to sedation. - Airway | | Examination: Mallampati Class III (part of the | | uvula and soft palate visualized). | | - ASA Grade Assessment: III - A patient with | | severe systemic disease. | | - After reviewing the risks and benefits, the | | patient was deemed in satisfactory condition | | to undergo the procedure. | | - The anesthesia plan was to use monitored | | anesthesia care (MAC). | | - Immediately prior to administration of | | medications, the patient was re-assessed for | | adequacy to receive sedatives. | | Prior to the procedure, a History and Physical | | with airway assessment was performed (see | | patient record), and patient medications and | | allergies were reviewed. The risks and | | benefits of the procedure and the sedation | | options and risks were discussed. All questions were | | answered and informed consent was obtained. | | After reviewing the risks and benefits, the | | patient was deemed in satisfactory condition | | to undergo the procedure. Immediately prior | | to administration of medications, the patient | | was re-assessed for adequacy to receive | | sedatives. The heart rate, respiratory rate, oxygen | | saturations, blood pressure, adequacy of | | pulmonary ventilation, and response to care | | were monitored throughout the procedure. The | | physical status of the patient was | | re-assessed after the procedure. The Olympus | | [id number]-[id number] Duodenoscope #[id number] was | | introduced through the mouth, and advanced to the | | duodenum and used to inject contrast into the | | bile duct. The ERCP was accomplished without | | difficulty. The patient tolerated the | | procedure well. Estimated Blood Loss: Estimated blood loss: none. Findings: | | The ecommerce project manager film was normal. The esophagus was successfully intubated | | under direct vision. The scope was advanced to a normal major papilla in the | | descending duodenum without detailed examination of the pharynx, larynx and | | associated structures, and upper GI tract. The upper GI tract was grossly | | normal. A straight 0.035 inch Tracer Metro Direct wire was passed into the | | biliary tree. The Fusion OMNI sphincterotome was passed over the guidewire | | and the bile duct was then deeply cannulated. Contrast was injected. I | | personally interpreted the bile duct images. Ductal flow of contrast was | | adequate. Image quality was adequate. Contrast extended to the entire biliary | | tree. The lower third of the main bile duct contained a single severe | | stenosis 20 mm in length. The middle third of the main bile duct, upper third | | of the main bile duct and left and right hepatic ducts and all intrahepatic | | branches were severely and diffusely dilated. One 10 mm by 6 cm bare metal | | stent was placed 5.5 cm into the common bile duct. Bile flowed through the | | stent. The stent was in good position. Impression: - A | | severe biliary stricture was found. The stricture | | was malignant appearing. This was treated with | | placement of bare metal stent into the common | | bile duct. Recommendation: - [facility] for [facility] | | care. - Observe patient's clinical course | | following today's ERCP with therapeutic | | intervention. - Watch for pancreatitis, | | bleeding, perforation, and cholangitis. | | - The findings and recommendations were | | discussed with the patient and their spouse. | | Attending Participation: I personally performed the entire procedure. Barney | | MD BARNEY Leger MD 12/05/2017 2:57:09 PM This report has been signed | | electronically. Number of Addenda: 0 Note Initiated On: 12/05/2017 2:13 PM CC Letter | | to: PEPE OAKLEY DO | + + FINE NEEDLE ASPIRATE (12/05/2017 2:00 PM) + + + + | Component | Value | Ref Range | + + + + | Clinical History | Head of pancreas mass. | | + + + + | Final Pathologic | A. Pancreas, head of pancreas mass, | | | Diagnosis | EUS-guided FNA: Ductal adenocarcinoma | | | | Comment: The cell block contains malignant | | | | cells demonstrating cribriform architecture | | | | with focal mucin production and necrosis. | | | | Case seen by:BOB Morley([facility]) - | | | | CytotechnologistScarlotta Ann MD | | | | | | | | Pathology ResidentFernando Bell MD, PhD | | | | | | | | Pathologist My electronic signature | | | | indicates that I have personally reviewed | | | | all diagnostic slides, the gross and/or | | | | microscopic portion of this report and | | | | formulated the final diagnosis. | | + + + + | Immediate Impression | A: Evaluation episode #1: Pass #2: | | | | Positive for malignancy Immediate | | | | Impression evaluation was performed by - | | | | (Fernando Bell MD, PhD | | | | | | | | Pathologist). | | + + + + | Procedure Details | A. FNA by 2 passes yielded fluid for 1 | | | | SurePath slide, 2 air-dried and 0 fixed | | | | slide(s). A cell block was prepared and | | | | examined. | | + + + + + + + | Specimen | Performing Laboratory | + + + | Aspirate - Pancreas | [facility] [address] [place] [address] | | | [place] [address] | + + + EUS UPPER (12/05/2017 1:38 PM) + + + | Specimen | Performing Laboratory | + + + | | [facility] | + + + + + | Narrative | + + | Procedure Date: 12/05/2017 Patient Name: Ronni Barclay Order #: [id number] | | Date of : 1970 CSN: [id number] Admit Type: Inpatient Room: GI 3 | | Procedure: Upper EUS Indications: Suspected mass in | | pancreas on CT scan Providers: BARNEY LEGER MD (Doctor), | | NJ CROWLEY RN (Nurse), SCOTTY DE LEÓN | | (Meat Dresser), DORIS STALLINGS, Meat Dresser | | (Meat Dresser) Referring MD: AUDI KAMINSKI MD Requesting Provider: | | Medicines: Monitored Anesthesia Care Complications: No | | immediate complications. Procedure: Pre-Anesthesia Assessment: | | - Pre-procedure physical examination revealed | | no contraindications to sedation. | | - Airway Examination: Mallampati Class III | | (part of the uvula and soft palate | | visualized). - ASA Grade Assessment: III - A | | patient with severe systemic disease. | | - After reviewing the risks and benefits, the | | patient was deemed in satisfactory condition | | to undergo the procedure. | | - The anesthesia plan was to use monitored | | anesthesia care (MAC). | | - Immediately prior to administration of | | medications, the patient was re-assessed for | | adequacy to receive sedatives. | | Prior to the procedure, a History and Physical | | with airway assessment was performed (see | | patient record), and patient medications and | | allergies were reviewed. The risks and | | benefits of the procedure and the sedation | | options and risks were discussed. All questions were | | answered and informed consent was obtained. | | After reviewing the risks and benefits, the | | patient was deemed in satisfactory condition | | to undergo the procedure. Immediately prior | | to administration of medications, the patient | | was re-assessed for adequacy to receive | | sedatives. The heart rate, respiratory rate, oxygen | | saturations, blood pressure, adequacy of | | pulmonary ventilation, and response to care | | were monitored throughout the procedure. The | | physical status of the patient was | | re-assessed after the procedure. The Olympus | | [id number] Therapeutic EUS #[id number] was | | introduced through the mouth, and advanced to the second | | part of duodenum. The upper EUS was | | accomplished without difficulty. The patient | | tolerated the procedure well. Estimated Blood Loss: Estimated blood loss was | | minimal. Findings: Endosonographic Finding : An irregular mass was | | identified in the pancreatic head. The mass was hypoechoic. The mass measured | | at least 30 mm by 17 mm in maximal cross-sectional diameter (most likely | | undermeasured on EUS given lobulated nature of the mass). The endosonographic | | borders were well-defined. There was sonographic evidence suggesting | | invasion into the hepatic artery (manifested by encasement) and the portal | | vein (manifested by interface loss greater than or equal to 15 mm and | | compression). The remainder of the pancreas was examined. The | | endosonographic appearance of parenchyma and the upstream pancreatic duct | | indicated no duct dilation and parenchymal atrophy. Fine needle aspiration | | for cytology was performed. Color Doppler imaging was utilized prior to | | needle puncture to confirm a lack of significant vascular structures within | | the needle path. Three passes were made with the 22 gauge needle using a | | transduodenal approach. A stylet was used. A vice president of procurement was present and | | performed a preliminary cytologic examination. Preliminary cytology is | | suspicious for adenocarcinoma (final results are pending). There | | was dilation in the common bile duct which measured up to 12 mm. A few | | abnormal lymph nodes were visualized in the peripancreatic region. The | | largest measured 26 mm by 4 mm in maximal cross-sectional diameter. The nodes | | were oval, isoechoic and had well defined margins. There was no sign of | | significant endosonographic abnormality in the pancreatic body. | | Impression: - A mass was identified in the pancreatic head. Tissue | | was obtained from this exam. The preliminary | | diagnosis is consistent with adenocarcinoma. | | Fine needle aspiration performed. | | Recommendation: - Return patient to [facility] for [facility] care. | | - Refer to a surgeon at appointment to be | | scheduled. - Refer to an oncologist at | | appointment to be scheduled. Attending Participation: I personally performed | | the entire procedure. MD BARNEY Castro MD 12/05/2017 2:51:32 PM | | This report has been signed electronically. Number of Addenda: 0 Note Initiated On: | | 12/05/2017 1:38 PM CC Letter to: PEPE OAKLEY DO | + + INR (12/05/2017 6:20 AM) + +-------+ + | Component | Value | Ref Range | + +-------+ + | INR | 0.96 | 0.90 - 1.20 INR | + +-------+ + + + + | Specimen | Performing Laboratory | + + + | Blood | [facility], [address] | | | [place] [address] | + + + + + | Narrative | + + | INR Therapeutic ranges for full anticoagulation: INR for Venous | | Thromboembolism (2.0 - 3.0) INR INR for most patients with | | mech. valves (2.5 - 3.5) INR | + + CBC AND AUTO DIFF (12/04/2017 4:57 AM)Only the most recent of 2 results within the time eliceo chung is included. + + + + | Component | Value | Ref Range | + + + + | WHITE CELL COUNT | 8.17 | 3.50 - 10.80 K/cu mm | + + + + | RED CELL COUNT | 4.79 | 4.50 - 6.00 M/cu mm | + + + + | HEMOGLOBIN | 13.2 (L) | 13.5 - 17.5 g/dL | + + + + | HEMATOCRIT | 38.4 (L) | 41.0 - 53.0 % | + + + + | MCV | 80.2 | 80.0 - 96.0 fL | + + + + | MCHC | 34.4 | 33.0 - 35.5 g/dL | + + + + | RDW SD | 47.8 (H) | 35.1 - 46.3 fL | + + + + | PLATELET COUNT | 275 | 150 - 400 K/cu mm | + + + + | MPV | 10.0 | 9.7 - 12.3 fL | + + + + | NRBC% | 0.0 | 0.0 - 0.3 % | + + + + | NRBC# | 0.00 | 0.00 - 0.02 K/cu mm | + + + + | NEUTROPHIL % | 68.6 | 50.0 - 70.0 % | + + + + | LYMPHOCYTE % | 19.5 | 18.0 - 42.0 % | + + + + | MONOCYTE % | 8.1 | 3.5 - 9.0 % | + + + + | EOS % | 3.1 (H) | 1.0 - 3.0 % | + + + + | BASO % | 0.5 | 0.0 - 2.0 % | + + + + | IG% | 0.2Comment: Increased immature granulocytes | 0.0 - 1.0 % | | | (IG) define a left shift. Immature | | | | granulocytes (IG) are an automated count of | | | | metamyelocytes, myelocytes and | | | | promyelocytes. Bands are not included in | | | | the IG count. Bands are included in the | | | | neutrophil count. | | + + + + | NEUTROPHIL # | 5.61 | 1.80 - 7.70 K/cu mm | + + + + | LYMPHOCYTE # | 1.59 | 1.00 - 4.80 K/cu mm | + + + + | MONOCYTE # | 0.66 | 0.10 - 0.90 K/cu mm | + + + + | EOS # | 0.25 | 0.00 - 0.50 K/cu mm | + + + + | BASO # | 0.04 | 0.00 - 0.10 K/cu mm | + + + + | IG# | 0.02 | 0.00 - 0.10 K/cu mm | + + + + + + + | Specimen | Performing Laboratory | + + + | Blood | [facility], [place] [address] | | | [place] [address] | + + + + + | Narrative | + + | New reference ranges for IG% and IG# effective 10/02/2017. Increased immature | | granulocytes (IG) define a left shift. Immature granulocytes (IG) are an automated count | | of metamyelocytes, myelocytes and promyelocytes. Bands are not included in the IG | | count. Bands are included in the neutrophil count. | + + CBC, WITH DIFFERENTIAL (12/04/2017 4:57 AM)Only the most recent of 2 results within the ti ne period is included. + + + | Specimen | Performing Laboratory | + + + | Blood | | + + + + + | Narrative | + + | The following orders were created for panel order CBC, WITH DIFFERENTIAL. | | Procedure | | Abnormality Status | | --------- | | ------ CBC AND AUTO | | DIFF[[id number]] Abnormal Final | | result Please view results for these tests on the | | individual orders. | + + MAGNESIUM, PLASMA (12/04/2017 4:57 AM) + +-------+ + | Component | Value | Ref Range | + +-------+ + | MAGNESIUM,PLASMA | 2.4 | 1.6 - 2.6 mg/dL | + +-------+ + + + + | Specimen | Performing Laboratory | + + + | Blood | [facility], [address] | | | [place] [address] | + + + + + | Narrative | + + | Reference range change effective 04/26/17. | + + 12 LEAD ECG (12/03/2017 10:39 AM) + + + + | Component | Value | Ref Range | + + + + | VENTRICULAR RATE | 60 | bpm | + + + + | ATRIAL RATE | 61 | ms | + + + + | P-R INTERVAL | 169 | ms | + + + + | P AXIS | 49 | deg | + + + + | QRS DURATION | 131 | ms | + + + + | QT | 413 | ms | + + + + | QTCB | 413 | ms | + + + + | R AXIS | -19 | deg | + + + + | T AXIS | 2 | deg | + + + + | ECG IMPRESSION | Sinus rhythm | | + + + + | ECG IMPRESSION | Nonspecific intraventricular conduction | | | | delay- ABNORMAL ECG - | | + + + + | ECG IMPRESSION | Electronically signed by: VIOLETA KUO | | | | 12-03-2017 15:39:27 | | + + + + + + + | Specimen | Performing Laboratory | + + + | | [facility] [address] [place] [address] | | | [place] [id number] | + + + AMMONIA, PLASMA (12/03/2017 4:09 AM) + +-------+ + | Component | Value | Ref Range | + +-------+ + | AMMONIA (LAB) | 15 | 11 - 35 umol/L | + +-------+ + + + + | Specimen | Performing Laboratory | + + + | Blood | [facility], [address] [address] | | | [place] [id number] | + + + US LIVER (12/03/2017 2:40 AM) + + + | Specimen | Performing Laboratory | + + + | | [facility] | + + + + + | Narrative | + + | EXAM: US LIVER HISTORY: Right upper quadrant pain, known head of pancreas | | mass, jaundice. COMPARISON: Outside CT abdomen 11/15/2017. TECHNIQUE: Limited | | abdominal ultrasound performed. FINDINGS: Liver: The echotexture is | | homogeneous. Multiple well-circumscribed hypoechogenic lesions are seen throughout | | both the left and right lobes of the liver, the largest within the left lobe measuring | | up to 1.5 cm, incompletely evaluated. Biliary: The gallbladder is decompressed, not | | well visualized. Sonographic Julien sign is absent. There is mild to moderate | | intrahepatic biliary dilatation, likely mildly progressed from outside CT. Left | | intrahepatic ducts measure up to 6 mm. Right intrahepatic ducts measure up to 4 mm. The | | common duct measures 12 mm in diameter. Pancreas: Limited evaluation of the pancreas | | secondary to overlying bowel gas. Known pancreatic head mass is not well evaluated. | | Other: No free fluid in the right upper quadrant. IMPRESSION: 1. Known | | pancreatic mass is incompletely evaluated due to bowel gas. 2. Intra-and | | extrahepatic biliary dilatation is mildly increased since 11/15/2017. 3. | | Hypoechogenicliver lesions are incompletely evaluated. I have personally reviewed | | the images and, if necessary, edited the report. I agree with the report as now | | presented. | + + + + | Procedure Note | + + | Service Account, Radiant Res In Interface - 12/03/2017 1:06 PM PDT EXAM: US | | LIVERHISTORY: Right upper quadrant pain, known head of pancreas mass, | | jaundice.COMPARISON: Outside CT abdomen 11/15/2017.TECHNIQUE: Limited abdominal ultrasound | | performed.FINDINGS:Liver: The echotexture is homogeneous. Multiple well-circumscribed | | hypoechogenic lesions are seen throughout both the left and right lobes of the liver, | | the largest within the left lobe measuring up to 1.5 cm, incompletely evaluated. | | Biliary: The gallbladder is decompressed, not well visualized. Sonographic Julien sign | | is absent. There is mild to moderate intrahepatic biliary dilatation, likely mildly | | progressed from outside CT. Left intrahepatic ducts measure up to 6 mm. Right | | intrahepatic ducts measure up to 4 mm. The common duct measures 12 mm in | | diameter.Pancreas: Limited evaluation of the pancreas secondary to overlying bowel gas. | | Known pancreatic head mass is not well evaluated.Other: No free fluid in the right upper | | quadrant.IMPRESSION:1. Known pancreatic mass is incompletely evaluated due to bowel | | gas. 2. Intra-and extrahepatic biliary dilatation is mildly increased since 11/15/2017.3. | | Hypoechogenicliver lesions are incompletely evaluated.I have personally reviewed the | | images and, if necessary, edited the report. I agree with the report as now presented. | |Other: No free fluid in the right upper quadrant. | | | |IMPRESSION: | | | |1. Known pancreatic mass is incompletely evaluated due to bowel gas. | | | |2. Intra-and extrahepatic biliary dilatation is mildly increased since 11/15/2017. | | | |3. Hypoechogenicliver lesions are incompletely evaluated. | | | | | |I have personally reviewed the images and, if necessary, edited the report. I agree with t he report as now presented. | + + RAINBOW HOLD TUBE - RED TOP (12/03/2017 12:43 AM) + + + | Specimen | Performing Laboratory | + + + | Blood | [email or web address], CORE [address] | | | [place] [address] | + + + RAINBOW HOLD TUBE - PURPLE TOP (12/03/2017 12:43 AM) + + + | Specimen | Performing Laboratory | + + + | Blood | [email or web address], CORE [address] | | | [place] [address] | + + + RAINBOW HOLD TUBE - GREEN TOP (12/03/2017 12:43 AM) + + + | Specimen | Performing Laboratory | + + + | Blood | [facility], CORE [address] | | | [place] [address] | + + + RAINBOW HOLD TUBE - BLUE TOP (12/03/2017 12:43 AM) + + + | Specimen | Performing Laboratory | + + + | Blood | [facility], CORE [address] | | | [place] [address] | + + + GUICHO DAS, CORE PANEL (12/03/2017 12:43 AM) + + + | Specimen | Performing Laboratory | + + + | Blood | | + + + + + | Narrative | + + | The following orders were created for panel order GUICHO DAS, CORE PANEL. | | Procedure | | Abnormality Status | | --------- | | ------ RAINBOW HOLD | | TUBE - BLUE...[[id number]] Final | | result RAINBOW HOLD TUBE - | | GREE...[[id number]] Final | | result RAINBOW HOLD TUBE - | | PURP...[[id number]] Final | | result RAINBOW HOLD TUBE - RED | | TOP[[id number]] Final | | result Please view results for these tests on the | | individual orders. | + + BLOOD BANK HOLD TUBE - DON T PROCESS (12/03/2017 12:43 AM) + + + + | Component | Value | Ref Range | + + + + | SPECIMEN COLLECTED, | Sample received with adeq label/volume to | | | HELD | process | | + + + + + + + | Specimen | Performing Laboratory | + + + | Blood | [facility], TRANSF[facility]ION MEDICINE [address] [place] [address] | | | [place] [address] | + + + LIPASE, PLASMA (12/03/2017 12:43 AM) + +--------+ + | Component | Value | Ref Range | + +--------+ + | LIPASE (LAB) | 59 (L) | 152 - 353 U/L | + +--------+ + + + + | Specimen | Performing Laboratory | + + + | Blood | [facility], CORE [address] | | | [place] [address] | + + + from Last 3 Months"
--- OUTSIDE RECORDS SUMMARY | ~2017-12-07 | XMS | Encounter Summary ---
Demographics + + + | Address | [address] | | | [place] [address] | + + + | Home Phone [...] Author + + + | Author | [facility] | + + + | Organization | [facility] | + + + | Address | Unknown | + + + | Phone | Unavailable | + + + Support + + + + + | Name | Relationship | Address | Phone | + + + + + | ROXANN BAÑUELOS | ECON | [address] | | | | | # [place] | | | | | [address] | | + + + + + Care Team Providers + +------+ + | Care Computerized Mill Mill Recorder Name | Role | Phone | + +------+ + | Pepe Napier DO | PCP | | + +------+ + Encounter Details +--------+ + + + + | Date | Type | Department | Care Team | Description | +--------+ + + + + | 12/05/ | Procedure | [facility] [address] [address] | | | | 2017 | Pass | [address] | | | | | | [place], [place] | | | | | | [address] | | | | | | [phone] | | | +--------+ + + + + Social History + + + +--------+------+ [...] on file | | + + + as of this encounter Plan of Treatment +--------+ + + + + | Date | Type | Specialty | Care Team | Description | +--------+ + + + + | 12/12/ | Office | Hematology & | Fang Barton, | | | 2018 | Visit | Oncology | [address] | | | | | | [place] | | | | | | [address] | | | | | | [phone] | | | | | | | | +--------+ + + + + | 12/12/ | Telephone-S | Pre-operative | | | | 2018 | cheduled | Medicine | | | +--------+ + + + + | 12/16/ | Hospital | | Barney Leger, | | | 2017 | Encounter | | MD [address]nette [address] | | | | | | [address] | | | | | | [place] | | | | | | [address] | | | | | | [phone] | | | | | | | | +--------+ + + + + | 12/16/ | Appointment | Gastroenterology | Barney Leger, | | | 2017 | | | MD [address] | | | | | | [address] | | | | | | [place] | | | | | | [address] | | | | | | [phone] | | | | | | | | +--------+ + + + + as of this encounter Visit Diagnoses Not on filein this encounter"
--- OUTSIDE RECORDS SUMMARY | ~2017-12-07 | XMS | Encounter Summary ---
Demographics + + + | Address | [address] | | | [place] [address] | + + + | Home Phone | | + + + | Preferred Language | Unknown | + + + | Marital Status | Unmarried Domestic Partner | + + + | Alevism Affiliation | CHR | + + + | Race | White | + + + | Ethnic Group | Not or | + + + Author + + + | Author | [facility] | + + + | Organization | [facility] | + + + | Address | Unknown | + + + | Phone | Unavailable | + + + Support + + + + + | Name | Relationship | Address | Phone | + + + + + | ROXANN BAÑUELOS | ECON | [address] | | | | | # [place] | | | | | [address] | | + + + + + Care Team Providers + +------+ + | Care Pit Recorder Name | Role | Phone | + +------+ + | Pepe Oakley DO | PCP | | + +------+ + Encounter Details +--------+ + + + + | Date | Type | Department | Care Team | Description | +--------+ + + + + | 12/05/ | Inside | Digestive Health | Maureen Fu MD | | | 2018 | Referral | Center at [facility] | [address] | | | | Order | Floor [address] | [facility] | | | | | [facility] | [place], [place] | | | | | Mailcode: [id number] | [address] | | | | | Yolanda Naidu | [phone] | | | | | [address] [place], [place] | | | | | | [address] | | | | | | [phone] | | | +--------+ + + + [...] & | Fang Barton, | | | 2017 | Visit | Oncology | [address] | | | | | | [facility], [place] | | | | | | [address] | | | | | | [phone] | | | | | | | | +--------+ + + + + | 12/12/ | Telephone-S | Pre-operative | | | | 2017 | [facility] | Medicine | | | +--------+ + + + + | 12/16/ | Hospital | | Barney Leger, | | | 2017 | Encounter | | MD Annette [address] | | | | | | [address] | | | | | | [place] | | | | | | [address] | | | | | | [phone] | | | | | | | | +--------+ + + + + | 12/16/ | Appointment | Gastroenterology | Barney Leger, | | | 2017 | | | [address] | | | | | | [address] | | | | | | [place] | | | | | | [address] | | | | | | [phone] | | | | | | | | +--------+ + + + + as of this encounter Results ERCP (12/05/2017 2:13 PM) + + + | Specimen | Performing Laboratory | + + + | | [facility] | + + + + + | Narrative | + + | Procedure Date: 12/05/2017 Patient Name: Ronni Napier #: [id number] | | Date of : 1970 CSN: [id number] Admit Type: Inpatient Room: GI 3 | | Procedure: ERCP Indications: Jaundice, 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 The Olympus | | [id number] Duodenoscope #[id number] was | | introduced through the mouth, and advanced to the | | duodenum and used to inject contrast into the | | bile duct. The ERCP was accomplished without | | difficulty. The patient tolerated the | | procedure well. Estimated Blood Loss: Estimated blood loss: none. Findings: | | The rigging slinger film was normal. The esophagus was successfully [...] PM CC Letter | | to: PEPE OAKLEY, DO | + + EUS UPPER (12/05/2017 1:38 PM) + + + | Specimen | Performing Laboratory | + + + | | [facility] | + + + + + | Narrative | + + | Procedure Date: 12/05/2017 Patient Name: Ronni Napier #: [id number] | | Date of : 1970 CSN: [id number] Admit Type: Inpatient Room: GI 3 | | Procedure: Upper EUS Indications: Suspected mass in | | pancreas on CT scan Providers: BARNEY LEGER MD (Doctor), | | [place] CROWLEY RN (Nurse), SCOTTY DE LEÓN | | (Computer Typesetter), DORIS STALLINGS, Computer Typesetter | | (Computer Typesetter) Referring MD: AUDI KAMINSKI MD Requesting Provider: [...] after the procedure. The Olympus | | [id number] Therapeutic EUS #[id number] was | | introduced through the mouth, [...] transduodenal approach. A stylet was used. A technician submarine cable equipment was present and | | performed a [...] to: PEPE OAKLEY DO | + + in this encounter Visit Diagnoses + + | Diagnosis | + + | Hyperbilirubinemia - Primary | + + | Disorders of bilirubin excretion | + +"
--- OUTSIDE RECORDS SUMMARY | ~2017-12-07 | XMS | Encounter Summary ---
Demographics + + + | Address | [address] | | | [place] [address] | + + + | Home Phone | | + + + | Preferred Language | Unknown | + + + | Marital Status | Unmarried Domestic Partner | + + + | Mosque Affiliation | CHR | + + + | Race | White | + + + | Ethnic Group | Not or | + + + Author + + + | Author | [facility] | + + + | Organization | [facility] | + + + | Address | Unknown | + + + | Phone | Unavailable | + + + Support + + + + + | Name | Relationship | Address | Phone | + + + + + | ROXANN BAÑUELOS | ECON | [address] | | | | | # [place] | | | | | [address] | | + + + + + Care Team Providers + +------+ + | Care Seed Cleaning Manager Name | Role | Phone | + +------+ + | Pepe Napier DO | PCP | | + +------+ + Reason for Visit AUTH/CERT +--------+--------+ + + + + | Status | Reason | Specialty | Diagnoses / | Referred By | Referred To | | | | | Procedures | Contact | Contact | +--------+--------+ + + + + | | | | | | | +--------+--------+ + + + + Encounter Details +--------+ + + + + | Date | Type | Department | Care Team | Description | +--------+ + + + + | 12/05/ | Anesthesia | Digestive Health | Iglesia García, | | | 2018 | | [address] | [place] [address] [facility] | | | | | [facility] [address] [facility] | [facility] | | | | | [facility] | [place], [place] | | | | | Mailcode: [id number] | [address] | | | | | Yolanda Naidu | [phone] | | | | | [address] [place], [place] | | | | | | [address] | | | | | | [phone] | | | +--------+ + + + + Anesthesia Record + + + + + | Procedure Name | Responsible | Anesthesia Start | Anesthesia Stop Time | | | Anesthesiologist | Time | | + + + + + | EUS UPPER | Ronni Ferrara MD | 12/05/17 1338 | 12/05/17 1440 | + + + + + +----+---+ + + | Da | T | Event | Comment | | te | i | | | | | m | | | | | e | | | +----+---+ + + | 03 | 1 | Pt. Check | Prior to anesthesia start, pt. Identified, examined, chart | | /2 | 3 | | reviewed, PARQ held, anesthetic plan made or approved by | | 6/ | 2 | | attending anesthesiologist. NPO status confirmed as appropriate | | 20 | 7 | | for procedure Preoperative evaluation: unchanged | | 18 | | | | +----+---+ + + | | 1 | An Start | | | | 3 | | | | | 3 | | | | | 8 | | | +----+---+ + + | | 1 | An Start | | | | 3 | Data | | | | 4 | | | | | 1 | | | +----+---+ + + | | 1 | Vitals | Monitors applied Vital signs checked Patient ready for anesthesia | | | 3 | Checked | | | | 4 | | | | | 3 | | | +----+---+ + + | | 1 | Ready | | | | 3 | | | | | 5 | | | | | 1 | | | +----+---+ + + | | 1 | Pause | | | | 3 | | | | | 5 | | | | | 1 | | | +----+---+ + + | | 1 | Abx held | Contraindicated, or not indicated for this procedure, or already | | | 3 | Medical or | receiving antibiotics | | | 5 | Surgical | | | | 1 | Reason | | +----+---+ + + | | 1 | Incision | | | | 3 | | | | | 5 | | | | | 5 | | | +----+---+ + + | | 1 | Surgery end | | | | 4 | | | | | 3 | | | | | 4 | | | +----+---+ + + | | 1 | an stop | | | | 4 | data | | | | 3 | | | | | 7 | | | +----+---+ + + | | 1 | Anesthesia | | | | 4 | End | | | | 4 | | | | | 0 | | | +----+---+ + + +------+ | Meds | +------+ + + + | Name | Total | + + + | midazolam | 2 mg | + + + | propofol | 100 mg | + + + | propofol INF | 589,570 mcg | + + + | lidocaine 2% | 40 mg | + + + | fentaNYL | 100 mcg | + + + + + | No agents on file. | + + + + | No blood administrations on file. | + + +--------+ + + + | Type | Details | Placement | Removal | +--------+ + + + | Periph | 12/03/17; 0055; Left; | 12/03/17 0055 by | 12/06/17 1100 by | | eral | Antecubital; 20 g; No; Positive; | Cindi Villalobos RN | Malika Wan RN | | IV | 12/06/17; 1100; Discharge | | | +--------+ + + + in this encounter Social History + + + +--------+------+ | [...] | Office | Hematology & | Fang Braton, | | | 2017 | Visit | Oncology | [address] | | | | | | [place] | | | | | | [address] | | | | | | [phone] | | | | | | | | +--------+ + + + + | 12/12/ | Telephone-S | Pre-operative | | | | 2017 | cheduled | Medicine | | | +--------+ + + + + | 12/16/ | Hospital | | Barney Leger, | | | 2017 | Encounter | | [address] | | | | | | [address] | | | | | | [facility] [place] | | | | | | [address] | | | | | | [phone] | | | | | | | | +--------+ + + + + | 12/16/ | Appointment | Gastroenterology | Barney Leger, | | | 2017 | | | [address] | | | | | | [address] | | | | | | [place], [place] | | | | | | [address] | | | | | | [phone] | | | | | | | | +--------+ + + + + as of this encounter Visit Diagnoses Not on filein this encounter Administered Medications + +--------+ +--------+------+------+ | Medication Order | MAR | Action | Dose | Rate | Site | | | Action | Date | | | | + +--------+ +--------+------+------+ | fentaNYL citrate (PF) | Given | | 50 mcg | | | | (SUBLIMAZE) injection | | 8 13:51 | | | | | INTRAPROCEDURE PRN, Starting Mon | | PDT | | | | | 12/05/17 at 1351, Until Mon | | | | | | | 12/05/17 at 1437 | | | | | | + +--------+ +--------+------+------+ +-------+ +--------+---+---+ | Given | | 50 mcg | | | | | 8 13:58 | | | | | | PDT | | | | +-------+ +--------+---+---+ +---+---+ | | | +---+---+ + +-------+ +-------+---+---+ | lidocaine (XYLOCAINE MPF) 2 % | Given | | 40 mg | | | | (20 mg/mL) injection | | 8 13:51 | | | | | INTRAPROCEDURE PRN, Starting Mon | | PDT | | | | | 12/05/17 at 1351, Until Mon | | | | | | | 12/05/17 at 1437 | | | | | | + +-------+ +-------+---+---+ +---+---+ | | | +---+---+ + +-------+ +------+---+---+ | midazolam (VERSED) injection | Given | | 2 mg | | | | INTRAPROCEDURE PRN, Starting Mon | | 8 13:45 | | | | | 12/05/17 at 1345, Until Mon | | PDT | | | | | 12/05/17 at 1437 | | | | | | + +-------+ +------+---+---+ +---+---+ | | | +---+---+ + +---------+ + +--------+---+ | propofol (DIPRIVAN) injection | New Bag | | 150 | 99.18 | | | INTRAPROCEDURE CONTINUOUS PRN, | | 8 13:51 | mcg/kg/m | mL/hr | | | Starting 12/05/17 at 1351, | | PDT | in | | | | Until Tue12/05/17 at 1437 | | | | | | + +---------+ + +--------+---+ + + + +--------+---+ | Rate/Dose Change | | 125 | 82.65 | | | | 8 14:10 | mcg/kg/m | mL/hr | | | | PDT | in | | | + + + +--------+---+ +---+---+ | | | +---+---+ + +-------+ +-------+---+---+ | propofol INTRAPROCEDURE PRN, | Given | | 50 mg | | | | Starting 12/05/17 at 1350, | | 8 13:50 | | | | | Until Tue12/05/17 at 1437 | | PDT | | | | + +-------+ +-------+---+---+ +-------+ +-------+---+---+ | Given | | 50 mg | | | | | 8 13:54 | | | | | | PDT | | | | +-------+ +-------+---+---+ +---+---+ | | | +---+---+ in this encounter"
--- OUTSIDE RECORDS SUMMARY | ~2017-12-07 | XMS | Encounter Summary ---
Demographics + + + | Address | [address] | | | [place] [address] | + + + | Home Phone | | + + + | Preferred Language | Unknown | + + + | Marital Status | Unmarried Domestic Partner | + + + | Buddhist Affiliation | CHR | + + + | Race | White | + + + | Ethnic Group | Not or | + + + Author + + + | Author | [facility] | + + + | Organization | [facility] | + + + | Address | Unknown | + + + | Phone | Unavailable | + + + Support + + + + + | Name | Relationship | Address | Phone | + + + + + | ROXANN BAÑUELOS | ECON | [address] | | | | | # [place] | | | | | [address] | | + + + + + Care Team Providers + +------+ + | Care Cashier Wrapper Name | Role | Phone | + +------+ + | Pepe Napier DO | PCP | | + +------+ + Encounter Details +--------+ + + + + | Date | Type | Department | Care Team | Description | +--------+ + + + + | 12/02/ | Technical Implementation Lead | Digestive Health | Albaro Vences | Pancreatic mass | | 2018 | | Center at [facility] 4th | MD Wenceslao [address] | (Primary Dx) | | | | Floor [address] | [facility] | | | | | [facility] | [place], [place] | | | | | Mailcode: [id number] | [address] | | | | | Yolanda Naidu | [phone] | | | | | [address] [facility] [place] | | | | | | [address] | | | | | | [phone] | | | +--------+ + + + + Social History + +-------+ +--------+------+ | Tobacco Use | Types | Packs/Day | Years | Date | | | | | Used | | + +-------+ +--------+------+ | Never Assessed | | | | | + +-------+ +--------+------+ + + + | Sex Assigned at [...] [place] | | | | | | [address] | | | | | | [phone] | | | | | | | | +--------+ + + + + | 12/12/ | Telephone-S | Pre-operative | | | | 2017 | cheduled | Medicine | | | +--------+ + + + + | 12/16/ | Hospital | | Barney Leger, | | | 2017 | Encounter | | [address] [facility] | | | | | | [address] | | | | | | [place], [place] | | | | | | [address] | | | | | | [phone] | | | | | | | | +--------+ + + + + | 12/16/ | Appointment | Gastroenterology | Barney Leger, | | | 2018 | | | [address] | | | | | | [address] | | | | | | [facility] [place] | | | | | | [address] | | | | | | [phone] | | | | | | | | +--------+ + + + + + +--------+ + + | Name | Priori | Associated Diagnoses | Order Schedule | | | ty | | | + +--------+ + + | LIVER SET (AST,ALT,BILI | Routin | Pancreatic mass | Expected: 12/02/2017 | | TOTAL,BILI DIRECT,ALK | e | | (Approximate), | | PHOS,ALB,PROT TOTAL) | | | Expires: 01/02/2019 | + +--------+ + + as of this encounter Visit Diagnoses + + | Diagnosis | + + | Pancreatic mass - Primary | + + | Unspecified disease of pancreas | + +"
--- OUTSIDE RECORDS SUMMARY | ~2017-12-07 | XMS | Encounter Summary ---
Demographics + + + | Address | [address] | | | [place] [address] | + + + | Home Phone | | + + + | Preferred Language | Unknown | + + + | Marital Status | Unmarried Domestic Partner | + + + | Jehovah'S Witness Affiliation | CHR | + + + | Race | White | + + + | Ethnic Group | Not or | + + + Author + + + | Author | [facility] | + + + | Organization | [facility] | + + + | Address | Unknown | + + + | Phone | Unavailable | + + + Support + + + + + | Name | Relationship | Address | Phone | + + + + + | ROXANN BAÑUELOS | ECON | [address] | | | | | # [place] | | | | | [address] | | + + + + + Care Team Providers + +------+ + | Care Proofer Apprentice Name | Role | Phone | + +------+ + | Pepe Oakley DO | PCP | | + +------+ + Reason for Referral Consultation (Routine) + +--------+ + + + + | Status | Reason | Specialty | Diagnoses / | Referred By | Referred To | | | | | Procedures | Contact | Contact | + +--------+ + + + + | New Request | | Medical | Diagnoses | [place], | | | | | Genetics | Pancreatic | Demian Higuera | | | | | | montrell | [address] | | | | | | [facility] | [address] | | | | | | Jaden | [address] | | | | | | CONSULT TO | [place], [place] | | | | | | MEDICAL | [address] | | | | | | GENETICS | Phone: | | | | | | | [phone] | | | | | | | Fax: | | | | | | | [phone] | | + +--------+ + + + + Reason for Visit + + + | Reason | Comments | + + + | Abdominal pain | | + + + AUTH/CERT +--------+--------+ + + + + | [...] + + | 12/03/ | Hospital | [facility] [address] | Esperanza Modi, | | | 2018 - | Encounter | [address] | ,PhD [address] | | | | | [place], [place] | [address] | | | 12/06/ | | [address] | [place], [place] | | | 2017 | | [phone] | [address] | | | | | | [phone] | | | | | | | | | | | | Han Wilkes MD | | | | | | [address] | | | | | | [place] [place], | | | | | | [place] [address] | | | | | | [phone] | | | | | | | | | | | | Lucía Alejandre MD | | | | | | [address] | | | | | | [place], | | | | | | [place] [address] | | | | | | [phone] | | | | | | | | | | | | Maureen Fu MD | | | | | | [address] | | | | | | [place], | | | | | | [place] [address] | | | | | | [phone] | | | | | | | | | | | | Demian Del Toro | | | | | | MD Kalen | | +--------+ + + [...] + + + as of this encounter Last Filed Vital Signs + + + [...] PM PDT | + + + + in this encounter Discharge Summaries Demian Del Toro MD - 12/06/2017 10:10 AM PDTFormatting of this note may be different from the original. Clinical Hospitalist Discharge Summary PCP: Pepe Oakley DO Author: Demian Del Toro MD, PhD Discharging Physician: Demian Del Toro MD, PhD Admission Date: 12/03/2017 Discharge Date: 12/06/2017 Principal Final Diagnosis: 1) Pancreatic adenocarcinoma (HCC) Additional Diagnoses: 1) *Pancreatic mass 2) Liver mass 3) Hyperbilirubinemia 4) Obstructive jaundice Procedures: Procedures 12/05/2017 - ERCP/EUS and biopsy Reason For Admission: Ronni Barclay is a 47 y.o. Male w/ hx of pancreatic cancer diagnosed 3 weeks ago and scheduled for EUS here 12/16/17, and presents to [facility] for acutely worsening abdominal pain and 3 days o f new onset jaundice. Hospital Course: # Pancreatic Adenocarcinoma (?) # Obstructive jaundice # Transaminitis # Pancreatic head mass Pancreatic mass first noted Nov 15 that incorporates portal vein and enlarged periportal LNs , several ill-defined liver lesons and in outpatient surgical consultation was deemed unrese ctable. At that time, had severe abd pain with 10 lb weight loss and over the past month has lost an additional 20 lbs by report. CA 19-9 >1200. Had an EGD done at [facility] in [facility] without visualized tumor penetrating into antrum or duodenum, no bx taken. On transf er to [facility], his T bili was 14.3 and peaked at 20, with AST/ALT on admission 103/657 on admis soham. He underwent ERCP + EUS and bx completed on 12/05/2017 with metal stent placement, pre mancia pathology with adenocarcinoma. These findings were discussed with oncology who noted russ t he needed a CT abdomen/pelvis (pancreas protocol) and CT chest prior to making decisions a bout treatment. These were obtained on day of discharge with results pending at time of dis charge. LFTs on day of discharge/day after metal stent placement showed significant improve ment in T bili and AST/ALT. He was seen by [facility] as well, who recommended a Genetics referral given his young age of pancreatic cancer and family hx of breast cancer and thyroi d cancer. -Has Oncology follow-up on 12/12 -Referral to our [facility] -Referral to Genetics #Abdominal Pain Patient with significant cancer pain, difficult to control without regular oral medications . Continued home fentanyl patch discussed transition from home Alexis to oxycodone. On day o f discharge, he requested that oxycodone be used in place of norco as oxy provides optimal p ain relief. Thus will continue home fentanyl patch and oxycodone q6h prn for breakthrough p ain. His abdominal pain improved significantly after metal stent placement. # Tobacco use disorder Has smoked 2ppd for 30 years until recent diagnosis, now down to 0.5ppd, cessation [facility] Consultants (service/attending name): GI/Dr. Alfaro [facility]/Dr. Puri Images/procedures: US Liver 12/03/17 IMPRESSION: 1. Known pancreatic mass is incompletely evaluated due to bowel gas. 2. Intra-and extrahepatic biliary dilatation is mildly increased since 11/15/2017. 3. Hypoechogenicliver lesions are incompletely evaluated. ERCP & EUS 12/05/17 Findings: The shirt presser film was normal. The esophagus was successfully intubated under direct vision. The scope was advanced to a normal major papilla in the descending duodenum without detailed examination of the pharynx, larynx and associated structures, and upper GI tract. The upper GI tract was grossly normal. A straight 0.035 inch Tracer Metro Direct wire was passed into the biliary tree. The Fusion OMNI sphincterotome was passed over the guidewire and the bile duct was then deeply cannulated. Contrast was injected. I personally interpreted the bile duct images. Ductal flow of contrast was adequate. Image quality was adequate. Contrast extended to the entire biliary tree. The lower third of the main bile duct contained a single severe stenosis 20 mm in length. The middle third of the main bile duct, upper third of the main bile duct and left and right hepatic ducts and all intrahepatic branches were severely and diffusely dilated. One 10 mm by 6 cm bare metal stent was placed 5.5 cm into the common bile duct. Bile flowed through the stent. The stent was in good position. Impression: - A severe biliary stricture was found. The stricture was malignant appearing. This was treated with placement of bare metal stent into the common bile duct. Relevant HPI/Exam/Labs: Discharge physical exam Vital Signs at discharge: BP: 141/70 (12/06/17 0625) Pulse: 73 (12/06/17 0625) Resp: 16 ( 0625) Weight: 110.2 kg (243 lb) (12/05/17 1300) Body mass index is 32.96 kg/m. Discharge weight:- Wt Readings from Last 1 Encounters: 12/05/17 110.2 kg (243 lb) Gen: Walking halls, NAD, visibly jaundiced HEENT: EOMI, scleral icterus CV:RRR, nl s1/s2, no mrg Pulm:ctab Abd: soft, non-tender, non-distended Ext: no edema Neuro: A&O x3, freely moving all extremities, normal gait Labs at Discharge: Lab Results Component Value Date NA 137 12/06/2017 K 3.6 12/06/2017 CL 102 12/06/2017 BICARB 26 12/06/2017 BUN 11 12/06/2017 CR 0.65 12/06/2017 GLU 101 12/06/2017 CA 8.5 12/06/2017 AST 68 12/06/2017 ALT 217 12/06/2017 AP 609 12/06/2017 TBILI 9.4 12/06/2017 TP 6.4 12/06/2017 ALB 3.0 12/06/2017 Lab Results Component Value Date WBC 9.74 12/06/2017 RBC 4.52 12/06/2017 HB 12.3 (L) 12/06/2017 HCT 36.3 (L) 12/06/2017 MCV 80.3 12/06/2017 MCHC 33.9 12/06/2017 RDW 49.1 (H) 12/06/2017 PLT 280 12/06/2017 MPV 10.1 12/06/2017 NRBCPERC 0.0 12/06/2017 NRBCABS 0.00 12/06/2017 Lab Results Component Value Date INRPT 0.96 12/05/2017 Lab Results Component Value Date CEA 2.4 12/06/2017 Outstanding labs/studies: EUS biopsy Core Measures: Diagnosis of CHF: No Medication List START taking these medications oxyCODONE (immediate release) 5 mg Tab Commonly known as: ROXICODONE Take 4 tablets by mouth every six hours as needed for breakthrough pain. Indications: Pain senna-docusate 8.6-50 mg Tab Commonly known as: SENOKOT S Take 1 tablet by mouth two times daily. CONTINUE taking these medications fentaNYL 12 mcg/hr patch Commonly known as: DURAGESIC Apply 1 patch to skin every seventy-two hours. Please remove old patch prior to placing a n ew one. ondansetron ODT 4 mg Tbdi Commonly known as: ZOFRAN ODT Dissolve 4 mg on tongue and swallow every twelve hours as needed. STOP taking these medications HYDROcodone-acetaminophen 10-325 mg Tab Commonly known as: NORCO Allergies: No Known Allergies Follow-up Appointments: Future Appointments Provider Department Dept Phone Center 12/12/2017 8:30 AM Fang Barton [facility] [place] - Medical Oncology [phone] [facility] 12/12/2017 2:20 PM [facility] PHONE/RN CLIN 3 [facility] Preoperative Medicine Clinic at [facility] 4th Floor Day Stay [phone] [facility] 12/16/2017 12:15 PM [facility] at [facility] 4th Floor [phone] [facility] Additional Instructions/Orders: Diet Regular Regular diet- There are no restrictions to your diet. You may eat or drink whatever you pr efer, though healthy food choices are recommended. Activity No activity restrictions Condition on Discharge Good Who To Call For Problems HOW TO REACH YOUR MEDICINE TEAM WITH QUESTIONS, CONCERNS, OR NEW SYMPTOMS: Thank you for entrusting your care to [facility] Internal Medicine. If you have any problems or concerns before you are able to follow up with your Primary Care Provider, please call and ask the paper and pulp mill operator to page the attending physician, Maureen Fu MD, who was caring for you at discharge. If that physician is not available, ask the paper and pulp mill operator to page t he physician airborne operations manager for the Clinical Hospitalist Service. Call us right away if any of the following occur: -You have new/worsening abdominal pain -You've noticed that you are turning more yellow Discharge Destination: Home Code Status: Full POLST completed: no Discharging Physician: Demian Del Toro MD, PhD Attending Physician: Demian Del Toro MD, PhD I spent more than 33 minutes yiel-ud-fyce with the patient of which greater than 50% was sp ent counseling the patient and in coordinating care with Nursing and [facility]. in this encounter Medications at Time of Discharge + + +--------+---------+ + + | Medication | Sig. | Disp. | Refills | Start | End Date | | | | | | Date | | + + +--------+---------+ + + | fentaNYL 12 mcg/hr | Apply 1 patch to | | | | | | transdermal patch | skin every | | | | | | | seventy-two hours. | | | | | | | Please remove old | | | | | | | patch prior to | | | | | | | placing a new one. | | | | | + + +--------+---------+ + + | ondansetron ODT 4 | Dissolve 4 mg on | | | | | | mg oral | tongue and swallow | | | | | | tablet,disintegratin | every twelve hours | | | | | | g | as needed. | | | | | + + +--------+---------+ + + | oxyCODONE | Take 4 tablets by | 90 | 0 | 12/07/19 | | | (immediate release) | mouth every six | tablet | | 18 | | | 5 mg oral | hours as needed for | | | | | | tabletIndications: | breakthrough pain. | | | | | | Pain | Indications: Pain | | | | | + + +--------+---------+ + + | senna-docusate | Take 1 tablet by | 60 | 0 | 12/07/19 | | | 8.6-50 mg oral | mouth two times | tablet | | 18 | | | tablet | daily. | | | | | + + +--------+---------+ + + as of this encounter Progress Notes Maureen Fu MD - 12/05/2017 6:56 PM PDTFormatting of this note may be different from t alysa original. [facility] Progress Note Hospital Day #2 24 Hour Events: -ERCP with metal stent placement and biopsy completed today. -Patient with uncontrolled pain overnight due to mixup with pain medications, difficulty co ntrolling the patient's pain this morning due to getting behind. -This afternoon patient's pain was well-controlled Physical Examination: Last 24 hour min/max Temp: 36.6 C (97.9 F) Temp Min: 36.3 C (97.3 F) Max: 36.9 C (98.4 F) Pulse: 61 Pulse Min: 61 Max: 83 Resp: 16 Resp Min: 13 Max: 18 BP: 145/67 BP Min: 131/73 Max: 176/85 SpO2: 98 % SpO2 Min: 93 % Max: 100 % Body mass index is 32.96 kg/m. Date 12/05/17 0700 - 12/06/17 0659 Shift 7364-5495 4338-8031 1645-1020 24 Hour Total I N T A K E P.O. 200 200 I.V. 10 350 360 Shift Total 10 550 560 O U T P U T Urine (mL/kg/hr) 200 (0.2) 200 Shift Total (mL/kg) 200 (1.8) 200 (1.8) Weight (kg) 110.2 110.2 110.2 110.2 General: Comfortable in bed. Head and Eyes: Head atraumatic. EOMI Neck: Supple. Cardiovascular: Regular rate and rhythm no murmurs rubs or gallops Pulmonary: clear bilaterally, no wheezes, rhonchi, rales Abdominal: Soft,Mildly tender in the right upper quadrant, nondistended, normoactive bowel sounds Extremities: no peripheral edema Laboratory Interpretation: Sodium 135 Creatinine 0.63 AST 104 ALT 282 Alkaline phosphatase 670 Bilirubin 20 Assessment and Plan In summary, Ronni Barclay is a 47 y.o. previously healthy gentleman with recent diagnosis of m etastatic pancreatic head carcinoma based on imaging and elevated CA 19-9 without tissue dx, who presents with obstructive jaundice and hyperbilirubinemia. # Obstructive jaundice # Transaminitis # Pancreatic head mass Pancreatic mass first noted Nov 6 that incorporates portal vein and enlarged periportal LNs , several ill-defined liver lesons and in outpatient surgical consultation was deemed unrese ctable. At that time, had severe abd pain with 10 lb weight loss and over the past month has lost an additional 20 lbs by report. CA 19-9 >1200. Had an EGD done at [facility] in [place] without visualized tumor penetrating into antrum or duodenum, no bx taken. ERCP + EUS and bx completed today with metal stent placement, prelim pathology with adenocarcinoma. I discussed these findings with patient and with oncology who noted that he needed a CT abdome n/pelvis and CT chest prior to making decisions about treatment. Will obtain these overnigh t to help with staging. -Oncology will schedule follow-up with the patient following final pathology results -Will send referral to our [facility]. - cont home fentanyl patch 12mcg Q72hrs - cont oxycodone - cont BM regimen, ondansetron - F/U GI recs # Tobacco use disorder Has smoked 2ppd for 30 years until recent diagnosis, now down to 0.5ppd. - cessation encouraged - cont Nicotine patches, gum, lozenges Nutrition: Advanced diet as tolerated Prophylaxis: Ambulation Code Status:DNR/DNI Disposition: Tomorrow to home Maureen Fu MD Clinical Hospitalist [facility] [place] Pager [phone] I spent 39 minutes esvw-bt-gkfh with the patient of which 59% was spent counseling the patricia ent regarding prognosis and next steps in treatment. Otoniel Burnett PA-C - 12/04/2017 7:58 AM PDTFormatting of this note may be different fro m the original. HOSPITALIST PROGRESS NOTE Author: Otoniel Burnett PA-C Attending: Maureen Fu MD Hospital Day: 1 INTERVAL EVENTS - TBili 14.3 --> 16.9, alk phos and AST/ALT stable - GI planning for ERCP on Tuesday - holding on abx, low suspicion cholangitis - pain control not adequate overnight - overnight vitals stable, no acute events SUBJECTIVE Endorsing increase in abdominal pain. States it isn't different in character than his ongoi ng malignancy pain, just worse overnight, low back to epigastrium radiating back and forth. Not worsened post-prandial, continues to have good appetite. Had BM this AM, formed but not constipated. Continues to deny fever and chills. Does not think his jaundice is worsening. OBJECTIVE BP 140/85 | Pulse 70 | Temp 36.5 C (97.7 F) | RR 16 | Wt 109.8 kg (242 lb) | SpO2 97% Last 24 hour min/max Temp: 36.5 C (97.7 F) Temp Min: 36.5 C (97.7 F) Max: 36.9 C (98.4 F) Pulse: 70 Pulse Min: 64 Max: 76 Resp: 16 Resp Min: 14 Max: 16 BP: 140/85 BP Min: 125/71 Max: 147/70 SpO2: 97 % SpO2 Min: 92 % Max: 97 % There is no height or weight on file to calculate BMI. PHYSICAL EXAM General: Adult male in NAD, stable jaundice with mild scleral icterus Skin: Warm/dry. No rashes, lesions, ecchymoses HEENT: Normocephalic, atraumatic. EOMI, PERRL. MMM. Cardiovascular: S1 and S2 appreciated. RRR, no murmurs, rubs, or gallops. No carotid bruit s, pulses are 2+ bilaterally Peripheral vascular: No extremity edema, radial and dorsal pedis pulses 2+ bilaterally Pulmonary: Non-labored respirations. CTAB, no wheezes, rales, rhonchi Abdominal: No gross deformities. BS normoactive. Soft, mildly tender, non-distended Neurological: AO X 4. Grossly non-focal. Negative asterixis DATA Intake/Output Summary (Last 24 hours) at 12/04/17 0759 Last data filed at 12/04/17 0600 Gross per 24 hour Intake 1506.25 ml Output 2627 ml Net -1120.75 ml Labs: CBC with diff last 72 hours (or 3 results) Recent Labs 12/03/17 0043 12/04/17 0457 WBC 8.08 8.17 HB 13.7 13.2* HCT 41.2 38.4* PLT 288 275 NEUTROPERC 62.8 68.6 LYMPHPERC 25.2 19.5 MONOPERC 8.2 8.1 BASOPERC 0.4 0.5 EOSPERC 3.0 3.1* Chemistries last 72 Hours (or 3 results): Recent Labs 12/03/17 0043 12/04/17 0457 NA 136 137 K 3.7 3.7 CL 102 103 BICARB 26 25 BUN 12 8 CR 0.57* 0.62* CA 9.2 8.9 MG -- 2.4 AST 103* 95* ALT 387* 296* AP 657* 620* TBILI 14.3* 16.9* TP 7.2 6.7 ALB 3.7 3.4* No results found for: INRPT Cultures: None Imaging: No new studies ASSESSMENT & PLAN In summary, Ronni Barclay is a 47 y.o. previously healthy gentleman with recent diagnosis of m etastatic pancreatic head carcinoma based on imaging and elevated CA 19-9 without tissue dx, who presents with obstructive jaundice and hyperbilirubinemia. # Obstructive jaundice # Transaminitis # Pancreatic head mass Pancreatic mass first noted Nov 6 that incorporates portal vein and enlarged periportal LNs , several ill-defined liver lesons and in outpatient surgical consultation was deemed unrese ctable. At that time, had severe abd pain with 10 lb weight loss and over the past month has lost an additional 20 lbs by report. CA 19-9 >1200. Had an EGD done at [facility] in [place] without visualized tumor penetrating into antrum or duodenum, no bx taken. TBili slowl y rising 14.3 --> 16.9, other enzymes stable and thus likely seeing TBili lag. Continues wit hout evidence of hepatic decompensation, no HE or ascites. No fevers or systemic signs of in fection and thus holding on abx. US liver this admission by comparison with increased intra- and extrahepatic dilation. Planning for ERCP + EUS and bx tomorrow given stability, apprecia te GI assistance. - NPO at midnight - cont home fentanyl patch 12mcg Q72hrs - cont home Alexis 10-325mg PO Q4H PRN - start hydromorphone 0.2-0.6mg IV Q6H PRN breakthrough periprocedurally - consider uptitrating fentanyl patch once pain stable after procedure - cont BM regimen, ondansetron - F/U GI recs - F/U Alvarado EGD report request # Tobacco use disorder Has smoked 2ppd for 30 years until recent diagnosis, now down to 0.5ppd. - cessation encouraged - cont Nicotine patches, gum, lozenges DISPOSITION AND DISCHARGE PLAN Discharge is pending ERCP with stening. Anticipate discharge Tues if successful and uncompl icated ERCP FEN: regular diet VTE ppx: enoxaparin Code status: Do Not Resuscitate/Do Not Intubate Family updated: Viola, girlfriend, in detail at bedside -- Otoniel Burnett PA-C Clinical Hospitalist Service Pager [phone] I spent 39 minutes epvh-[id number]-pfxi with the patient of which greater than 50% was spent counse ling the patient in addition to coordination of care. Discussed with bedside RN and maryin g physician of record. Associated attestation - Maureen Fu MD - 12/04/2017 4:07 PM PDTI personally evaluated the patient, performed the cabello elements of the physical examination, and personally formula brianna the assessment and plan with Otoniel Burnett PA-C. I have reviewed the written documenta tion and I agree with the findings, assessment, advice, orders and plan as they are document ed with the following additions. Mr. Barclay is a 47y/o man with a metastatic pancreatic cancer who comes in with obstructive ja undice w/o signs of infection. Increased pain regimen today, ERCP on Tuesday. Maureen Fu MD Pantry Worker Clinical and Teaching Hospitalist Services Pager [phone] Otoniel Burnett PA-C - 12/03/2017 6:45 AM PDTFormatting of this note may be different fro m the original. HOSPITALIST PROGRESS NOTE Author: Otoniel Burnett PA-C Attending: Maureen Fu MD Hospital Day: 0 INTERVAL EVENTS - admitted to [facility] for obstructive jaundice - no sepsis on presentation, holding on abx - TBili 14.3, alk ph 657 AST 103 ALT 387 - overnight vitals stable SUBJECTIVE Corroborates bx as documented by Dr. Du' H&P. Primary concern is abdominal pain to whic h he states is adequately controlled at the moment. Denies diarrhea. Has not had a BM in , uses docusate and miralax at home. Denies N/V, abd distention. Denies fever and c hills. Lives in [place] with his girlfriend Viola. 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 OBJECTIVE BP 129/77 | Pulse 77 | Temp 36.4 C (97.5 F) | RR 16 | SpO2 95% Last 24 hour min/max Temp: 36.4 C (97.5 F) Temp Min: 36.4 C (97.5 F) Max: 36.4 C (97.5 F) Pulse: 77 Pulse Min: 77 Max: 77 Resp: 16 Resp Min: 16 Max: 16 BP: 129/77 BP Min: 129/77 Max: 164/75 SpO2: 95 % SpO2 Min: 95 % Max: 99 % There is no height or weight on file to calculate BMI. PHYSICAL EXAM General: Adult male in NAD, mildly jaundiced with mild scleral icterus Skin: Warm/dry. No rashes, lesions, ecchymoses HEENT: Normocephalic, atraumatic. EOMI, PERRL. MMM. Lymph: No cervical or supra/infraclavicular lymphadenopathy Cardiovascular: S1 and S2 appreciated. RRR, no murmurs, rubs, or gallops. No carotid bruit s, pulses are 2+ bilaterally Peripheral vascular: No extremity edema, radial and dorsal pedis pulses 2+ bilaterally Pulmonary: Non-labored respirations. CTAB, no wheezes, rales, rhonchi Abdominal: No gross deformities. BS normoactive. Soft, non-tender, non-distended Neurological: AO X 4. Grossly non-focal. Negative asterixis DATA Intake/Output Summary (Last 24 hours) at 12/03/17 0645 Last data filed at 12/03/17 0600 Gross per 24 hour Intake 0 ml Output 1 ml Net -1 ml Labs: CBC with diff last 72 hours (or 3 results) Recent Labs 12/03/17 0043 WBC 8.08 HB 13.7 HCT 41.2 PLT 288 NEUTROPERC 62.8 LYMPHPERC 25.2 MONOPERC 8.2 BASOPERC 0.4 EOSPERC 3.0 Chemistries last 72 Hours (or 3 results): Recent Labs 12/03/17 0043 NA 136 K 3.7 CL 102 BICARB 26 BUN 12 CR 0.57* CA 9.2 AST 103* ALT 387* AP 657* TBILI 14.3* TP 7.2 ALB 3.7 No results found for: INRPT Lipase 59 Ammonia 15 Cultures: None Imaging: - US liver 12/03/17: 1. Known pancreatic mass is incompletely evaluated due to bowel gas. 2. Intra-and extrahepatic biliary dilatation is mildly increased since 11/15/2017. 3. Hypoechogenicliver lesions are incompletely evaluated. ASSESSMENT & PLAN In summary, Ronni Barclay is a 47 y.o. previously healthy gentleman with recent diagnosis of m etastatic pancreatic head carcinoma based on imaging and elevated CA 19-9 without tissue dx, who presents with obstructive jaundice and hyperbilirubinemia. # Obstructive jaundice # Transaminitis # Pancreatic head mass Pancreatic mass first noted Nov 15 that incorporates portal vein and enlarged periportal LNs , several ill-defined liver lesons and in outpatient surgical consultation was deemed unrese ctable. At that time, had severe abd pain with 10 lb weight loss and over the past month has lost an additional 20 lbs by report. CA 19-9 >1200. Had an EGD done at [facility] in [facility] without visualized tumor penetrating into antrum or duodenum, no bx taken. On admissio n, TBili 14.3, alk ph 657 AST 103 ALT 387. No signs of hepatic decompensation with HE, ascit es. No fevers or systemic signs of infection and thus holding on abx. US liver this admissio n by comparison with increased intra-and extrahepatic dilation. Pt likely needs stenting and bx, for which GI is consulting and given no cholangitis sxs will likely occur in 1-2 days u nless he decompensates. - resume regular diet - cont home fentanyl patch 12mcg Q72hrs - cont home Alexis 10-325mg PO Q4H PRN - cont BM regimen, ondansetron - F/U GI recs - F/U Alvarado EGD report request # Tobacco use disorder Has smoked 2ppd for 30 years until recent diagnosis, now down to 0.5ppd. - cessation encouraged - cont Nicotine patches, gum, lozenges DISPOSITION AND DISCHARGE PLAN Discharge is pending ERCP with stening. Anticipate discharge in 2-3 days pending clinical c ourse. FEN: regular diet VTE ppx: enoxaparin Code status: Do Not Resuscitate/Do Not Intubate Family updated: Viola, girlfriend, in detail at bedside -- Otoniel Burnett PA-C Clinical Hospitalist Service Pager [phone] I spent 39 minutes [id number] with the patient of which greater than 50% was spent counse ling the patient in addition to coordination of care. Discussed with bedside RN and attendtangela hsu physician of record. Associated attestation - Maureen Fu MD - 12/03/2017 5:24 PM PDTI personally evaluated the patient, performed the cabello elements of the physical examination, and personally formula brianna the assessment and plan with Otoniel Burnett PA-C. I have reviewed the written documenta tion and I agree with the findings, assessment, advice, orders and plan as they are document ed with the following additions. Mr. Barclay is a 47y/o man with a metastatic pancreatic cancer who comes in with obstructive ja undice w/o signs of infection, discussed with hepatology who will do an ERCP on Tuesday. Maureen Fu MD Pantry Worker Clinical and Teaching Hospitalist Services Pager [phone] in this encounter Plan of Treatment +--------+ + + + + | Date | Type | Specialty | Care Team | Description | +--------+ + + + + | 12/12/ | Office | Hematology & | Fang Barton, | | | 2017 | Visit | Oncology | [address] | | | | | | [place] | | | | | | [address] | | | | | | [phone] | | | | | | | [...] [address] | | | | | | [place], [place] | | | | | | [address] | | | | | | [phone] | | | | | | | | +--------+ + + + + | 12/16/ | Appointment | Gastroenterology | Barney Leger, | | | 2017 | | | MD [address] | | | | | | [address] | | | | | | [place], [place] | | | | | | [address] | | | | | | [phone] | | | | | | | | +--------+ + + + + + +--------+ + + | Name | Priori | Associated Diagnoses | Date/Time | | | ty | | | + +--------+ + + | CT CHEST W CONTRAST | Routin | | 12/06/2017 10:28 AM | | | e | | PDT | + +--------+ + + + +--------+ + + | Name | Priori | Associated Diagnoses | Order Schedule | | | ty | | | + +--------+ + + | CT CHEST W CONTRAST | Routin | | One Time for 1 | | | e | | Occurrences starting | | | | | 12/05/2017 until | | | | | 12/05/2017 | + +--------+ + + as of this encounter Procedures + +--------+ + + + | [...] section. | + +--------+ + + + in this encounter Results CT MULTIPHASE PANCREAS AND PELVIS W IV CONTRAST (12/06/2017 10:28 AM) + + + | Specimen | Performing Laboratory | + + + | | K94 Discoveries RADIOLOGY VOICE RECOGNITION | + + + [...] + + CBC (HEMOGRAM) ONLY (12/06/2017 5:30 AM) + + + + [...] | + + + | Blood | [facility], CORE [address] | | | [place] [address] | + + + COMPLETE METABOLIC SET (NA,K,CL,CO2,BUN,CREAT,GLUC,CA,AST,ALT,BILI TOTAL,ALK PHOS,ALB,PROT TOTAL) (12/06/2017 5:30 AM) + + + + [...] | >60 | >60 mL/min | | [facility] | | | + + + + | EGFR NON | >60 | >60 mL/min | | -[place] | | | + + + + [...] | + + + | Blood | [facility], CORE [address] | | | [place] [address] | + + + + + | Narrative | + + | Adult glucose reference range change effective 7-17. GFR is estimated using the | | [...] Rapidly changing kidney function | + + CBC ONLY (12/06/2017 5:30 AM) + + + | Specimen | Performing Laboratory | + + + | Blood | | + + + + + | Narrative | + + | The following orders were created for panel order CBC ONLY. | | Procedure | | Abnormality Status | | --------- | | ------ CBC (HEMOGRAM) | | ONLY[[id number]] Abnormal Final | | result Please view results for these tests on the | | individual orders. | + + CARCINOEMBRYONIC AG, SERUM (12/06/2017 5:30 AM) + +-------+ + | Component | Value | Ref Range | + +-------+ + | CEA-CARCINOEMBRYONIC | 2.4 | <=2.5 ng/mL | | AG, SERUM | | | + +-------+ + + + + | Specimen | Performing Laboratory | + + + | Blood | [facility], CORE [address] | | | [place] [address] | + + + CANCER AG GI (), SERUM (12/06/2017 5:30 AM) + + + + | Component | Value | Ref Range | + + + + | CANCER AG GI () | 2,371.5 (H) | <=37.0 U/mL | | [facility] | | | + + + + + + + | Specimen | Performing Laboratory | + + + | Blood | [facility], CORE [address] | | | [place] [address] | + + + ERCP (12/05/2017 2:13 PM) + + + | Specimen | Performing Laboratory | + + + | | [facility] | + + + + + | Narrative | + + | Procedure Date: 12/05/2017 Patient Name: Ronni Napier #: [id number] | | Date of : 1970 CSN: [id number] Admit Type: Inpatient Room: GI 3 | | Procedure: ERCP Indications: Jaundice, Malignant | | tumor of the head of pancreas Providers: BARNEY LEGER MD | | (Doctor), NJ CROWLEY RN (Nurse), SCOTTY | | (Tank House Operator), DORIS STALLINGS, | | Tank House Operator (Tank House Operator) Referring MD: AUDI KAMINSKI MD Requesting | [...] procedure. The Olympus | | TJF-[id number] Duodenoscope #[id number] was | | introduced through the mouth, and advanced to the | | duodenum and used to inject contrast into the | | bile duct. The ERCP was accomplished without | | difficulty. The patient tolerated the | | procedure well. Estimated Blood Loss: Estimated blood loss: none. Findings: | | The shirt presser film was normal. The esophagus was successfully [...] to: PEPE OAKLEY, DO | + + FINE NEEDLE ASPIRATE [...] | | | | Case seen by:BOB Morley(ASCP) - | | | | CytotechnologistScarlotta Ann MD | | | | | | | | Pathology ResidentTerry MD Ray, PhD | | | | | | [...] + + | Aspirate - Pancreas | [facility] [address] | | | [place] [address] | + + + EUS UPPER (12/05/2017 1:38 PM) + + + | Specimen | Performing Laboratory | + + + | | [facility] | + + + + + | Narrative | + + | Procedure Date: 12/05/2017 Patient Name: Ronni Napier #: [id number] | | Date of : 1970 CSN: [id number] Admit Type: Inpatient Room: GI 3 | | Procedure: Upper EUS Indications: Suspected mass in | | pancreas on CT scan Providers: BARNEY LEGER MD (Doctor), | | [place] CROWLEY RN (Nurse), SCOTTY DE LEÓN | | (Tank House Operator), DORIS STALLINGS, Tank House Operator | | (Tank House Operator) Referring MD: AUDI KAMINSKI MD Requesting Provider: [...] after the procedure. The Olympus | | [id number] Therapeutic EUS #[id number] was | | introduced through the mouth, [...] transduodenal approach. A stylet was used. A loading shovel oiler was present and | | performed a [...] 12/05/2017 1:38 PM CC Letter to: PEPE OAKLEY, DO | + + CBC (HEMOGRAM) ONLY (12/05/2017 6:20 AM) + + + + | Component | Value | Ref Range | + + + + | WHITE CELL COUNT | 8.30 | 3.50 - 10.80 K/cu mm | + + + + | RED CELL COUNT | 4.71 | 4.50 - 6.00 M/cu mm | + + + + | HEMOGLOBIN | 12.6 (L) | 13.5 - 17.5 g/dL | + + + + | HEMATOCRIT | 37.3 (L) | 41.0 - 53.0 % | + + + + | MCV | 79.2 (L) | 80.0 - 96.0 fL | + + + + | MCHC | 33.8 | 33.0 - 35.5 g/dL | + + + + | RDW SD | 46.5 (H) | 35.1 - 46.3 fL | + + + + | PLATELET COUNT | 288 | 150 - 400 K/cu mm | [...] | + + + | Blood | [facility], CORE [address] [place] [address] | | | [place] [address] | + + + COMPLETE METABOLIC SET (NA,K,CL,CO2,BUN,CREAT,GLUC,CA,AST,ALT,BILI TOTAL,ALK PHOS,ALB,PROT TOTAL) (12/05/2017 6:20 AM) + + + + | Component | Value | Ref Range | + + + + | GLUCOSE, PLASMA | 104 (H) | 70 - 99 mg/dL | | (LAB) | | | + + + + | BUN, PLASMA (LAB) | 9 | 6 - 20 mg/dL | + + + + | CREATININE PLASMA | 0.63 (L) | 0.70 - 1.30 mg/dL | | (LAB) | | | + + + + | EGFR - | >60 | >60 mL/min | | [facility] | | | + + + + | EGFR NON | >60 | >60 mL/min | | -[facility] | | | + + + + | SODIUM, PLASMA (LAB) | 135 (L) | 136 - 145 mmol/L | + + + + | POTASSIUM, PLASMA | 3.8 | 3.4 - 5.0 mmol/L | | (LAB) | | | + + + + | CHLORIDE, PLASMA | 101 | 97 - 108 mmol/L | | (LAB) | | | + + + + | TOTAL CO2, PLASMA | 25 | 21 - 32 mmol/L | | (LAB) | | | + + + + | CALCIUM, PLASMA | 9.1 | 8.6 - 10.2 mg/dL | | (LAB) | | | + + + + | CALCIUM(ALB | 9.6 | 8.6 - 10.2 mg/dL | | CORRECTED) | | | + + + + | BILIRUBIN TOTAL | 20.0 (H) | 0.3 - 1.2 mg/dL | + + + + | TOTAL PROTEIN, | 6.7 | 6.4 - 8.2 g/dL | | PLASMA (LAB) | | | + + + + | ALBUMIN, PLASMA | 3.4 (L) | 3.5 - 4.7 g/dL | | (LAB) | | | + + + + | ALK PHOS | 670 (H) | 53 - 128 U/L | + + + + | AST(SGOT) | 104 (H) | <=41 U/L | + + + + | ALT (SGPT) | 282 (H) | <=60 U/L | + + + + | ANION GAP | 9 | 4 - 11 mmol/L | + + + + | ANION GAP(ALB | 10 | 4 - 11 mmol/L | | [...] | + + + | Blood | [facility], CORE [address] | | | [place] [address] | + + + + + | Narrative | + + | Adult glucose reference range change effective 7-17. GFR is estimated using the | | [...] Rapidly changing kidney function | + + CBC ONLY (12/05/2017 6:20 AM) + + + | Specimen | Performing Laboratory | + + + | Blood | | + + + + + | Narrative | + + | The following orders were created for panel order CBC ONLY. | | Procedure | | Abnormality Status | | --------- | | ------ CBC (HEMOGRAM) | | ONLY[[id number]] Abnormal Final | | result Please view results for these tests on the | | individual orders. | + + INR (12/05/2017 6:20 AM) + +-------+ + | Component | Value | Ref Range | + +-------+ + | INR | 0.96 | 0.90 - 1.20 INR | + +-------+ + + + + | Specimen | Performing Laboratory | + + + | Blood | [facility], [address]ORE [address] | | | [place] [address] | + + + + + | Narrative | + + | INR Therapeutic ranges for full anticoagulation: INR for Venous | | Thromboembolism (2.0 - 3.0) INR INR for most patients with | | mech. valves (2.5 - 3.5) INR | + + CBC AND AUTO DIFF (12/04/2017 4:57 AM) + + + + | Component [...] | + + + | Blood | [facility], CORE [address] | | | [place] [address] | + + + + + | [...] in the neutrophil count. | + + COMPLETE METABOLIC SET (NA,K,CL,CO2,BUN,CREAT,GLUC,CA,AST,ALT,BILI TOTAL,ALK PHOS,ALB,PROT TOTAL) (12/04/2017 4:57 AM) + + + + | Component | Value | Ref Range | + + + + | GLUCOSE, PLASMA | 106 (H) | 70 - 99 mg/dL | | (LAB) | | | + + + + | BUN, PLASMA (LAB) | 8 | 6 - 20 mg/dL | + + + + | CREATININE PLASMA | 0.62 (L) | 0.70 - 1.30 mg/dL | | (LAB) | | | + + + + | EGFR - | >60 | >60 mL/min | | [facility] | | | + + + + | EGFR NON | >60 | >60 mL/min | | -[facility] | | | + + + + | SODIUM, PLASMA (LAB) | 137 | 136 - 145 mmol/L | + + + + | POTASSIUM, PLASMA | 3.7 | 3.4 - 5.0 mmol/L | | (LAB) | | | + + + + | CHLORIDE, PLASMA | 103 | 97 - 108 mmol/L | | (LAB) | | | + + + + | TOTAL CO2, PLASMA | 25 | 21 - 32 mmol/L | | (LAB) | | | + + + + | CALCIUM, PLASMA | 8.9 | 8.6 - 10.2 mg/dL | | (LAB) | | | + + + + | CALCIUM(ALB | 9.4 | 8.6 - 10.2 mg/dL | | CORRECTED) | | | + + + + | BILIRUBIN TOTAL | 16.9 (H) | 0.3 - 1.2 mg/dL | + + + + | TOTAL PROTEIN, | 6.7 | 6.4 - 8.2 g/dL | | PLASMA (LAB) | | | + + + + | ALBUMIN, PLASMA | 3.4 (L) | 3.5 - 4.7 g/dL | | (LAB) | | | + + + + | ALK PHOS | 620 (H) | 53 - 128 U/L | + + + + | AST(SGOT) | 95 (H) | <=41 U/L | + + + + | ALT (SGPT) | 296 (H) | <=60 U/L | + + + + | ANION GAP | 9 | 4 - 11 mmol/L | + + + + | ANION GAP(ALB | 10 | 4 - 11 mmol/L | | [...] | + + + | Blood | [facility] [address] | | | [place] [address] | + + + + + | Narrative | + + | Adult glucose reference range change effective 7-17. GFR is estimated using the | | [...] Rapidly changing kidney function | + + MAGNESIUM, PLASMA (12/04/2017 4:57 AM) + +-------+ + | Component | Value | Ref Range | + +-------+ + | MAGNESIUM,PLASMA | 2.4 | 1.6 - 2.6 mg/dL | + +-------+ + + + + | Specimen | Performing Laboratory | + + + | Blood | [facility] [address] | | | [place] [address] | + + + + + | Narrative | + + | Reference range change effective 04/26/17. | + + CBC, WITH DIFFERENTIAL (12/04/2017 4:57 AM) + + + | Specimen | Performing Laboratory | + + + | Blood | | + + + + + | Narrative | + + | The following orders were created for panel order CBC, WITH DIFFERENTIAL. | | Procedure | | Abnormality Status | | --------- | | ------ CBC AND AUTO | | DIFF[[id number]] Abnormal Final | | result Please view results for these tests on the | | individual orders. | + + 12 LEAD ECG (12/03/2017 [...] Laboratory | + + + | | [facility] [address] [place] [address] | | | [place] [address] | + + + AMMONIA, PLASMA (12/03/2017 4:09 AM) + +-------+ + | Component | Value | Ref Range | + +-------+ + | AMMONIA (LAB) | 15 | 11 - 35 umol/L | + +-------+ + + + + | Specimen | Performing Laboratory | + + + | Blood | [facility], CORE [address] | | | [place] [address] | + + + US LIVER (12/03/2017 2:40 AM) + + + | Specimen | Performing Laboratory | + + + | | [facility] RADIOLOGY VOICE RECOGNITION | + + + [...] | + + + | Blood | [facility], CORE [address] | | | [place] [address] | + + + RAINBOW HOLD TUBE - PURPLE TOP (12/03/2017 12:43 AM) + + + | Specimen | Performing Laboratory | + + + | Blood | [facility], CORE [address] | | | [place] [address] | + + + RAINBOW HOLD TUBE - GREEN TOP (12/03/2017 12:43 AM) + + + | Specimen | Performing Laboratory | + + + | Blood | [facility], CORE [address] | | | [place] [address] | + + + RAINBOW HOLD TUBE - BLUE TOP (12/03/2017 12:43 AM) + + + | Specimen | Performing Laboratory | + + + | Blood | [facility], CORE [address] | | | [place] [address] | + + + BLOOD BANK HOLD TUBE - [...] | + + + | Blood | [facility], [facility] [address] | | | [place] [address] | + + + RAINBOW HOLD, CORE PANEL (12/03/2017 12:43 AM) + + + | Specimen | Performing Laboratory | + + + | Blood | | + + + + + | Narrative | + + | The following orders were created for panel order GUICHO HOLD, CORE PANEL. | | Procedure | | Abnormality Status | | --------- | | ------ RAINBOW HOLD | | TUBE - BLUE...[[id number]] Final | | result RAINBOW HOLD TUBE - | | GREE...[[id number]] Final | | result RAINBOW HOLD TUBE - | | PURP...[[id number]] Final | | result RAINBOW HOLD TUBE - RED | | TOP[[id number]] Final | | result Please view results for these tests on the | | individual orders. | + + CBC AND AUTO DIFF (12/03/2017 12:43 AM) + + + + | Component | Value | Ref Range | + + + + | WHITE CELL COUNT | 8.08 | 3.50 - 10.80 K/cu mm | + + + + | RED CELL COUNT | 5.05 | 4.50 - 6.00 M/cu mm | + + + + | HEMOGLOBIN | 13.7 | 13.5 - 17.5 g/dL | + + + + | HEMATOCRIT | 41.2 | 41.0 - 53.0 % | + + + + | MCV | 81.6 | 80.0 - 96.0 fL | + + + + | MCHC | 33.3 | 33.0 - 35.5 g/dL | + + + + | RDW SD | 48.4 (H) | 35.1 - 46.3 fL | + + + + | PLATELET COUNT | 288 | 150 - 400 K/cu mm | + + + + | MPV | 10.5 | 9.7 - 12.3 fL | + + + + | NRBC% | 0.0 | 0.0 - 0.3 % | + + + + | NRBC# | 0.00 | 0.00 - 0.02 K/cu mm | + + + + | NEUTROPHIL % | 62.8 | 50.0 - 70.0 % | + + + + | LYMPHOCYTE % | 25.2 | 18.0 - 42.0 % | + + + + | MONOCYTE % | 8.2 | 3.5 - 9.0 % | + + + + | EOS % | 3.0 | 1.0 - 3.0 % | + + + + | BASO % | 0.4 | 0.0 - 2.0 % | + + + + | IG% | 0.4Comment: Increased immature granulocytes | 0.0 - 1.0 [...] + + + | NEUTROPHIL # | 5.08 | 1.80 - 7.70 K/cu mm | + + + + | LYMPHOCYTE # | 2.04 | 1.00 - 4.80 K/cu mm | + + + + | MONOCYTE # | 0.66 | 0.10 - 0.90 K/cu mm | + + + + | EOS # | 0.24 | 0.00 - 0.50 K/cu mm | + + + + | BASO # | 0.03 | 0.00 - 0.10 K/cu mm | + + + + | IG# | 0.03 | 0.00 - 0.10 K/cu mm | + + + + + + + | Specimen | Performing Laboratory | + + + | Blood | [facility], CORE [address] | | | [place] [address] | + + + + + | [...] in the neutrophil count. | + + LIPASE, PLASMA (12/03/2017 12:43 AM) + +--------+ + | Component | Value | Ref Range | + +--------+ + | LIPASE (LAB) | 59 (L) | 152 - 353 U/L | + +--------+ + + + + | Specimen | Performing Laboratory | + + + | Blood | [facility], CORE [address] | | | [place] [address] | + + + COMPLETE METABOLIC SET (NA,K,CL,CO2,BUN,CREAT,GLUC,CA,AST,ALT,BILI TOTAL,ALK PHOS,ALB,PROT TOTAL) (12/03/2017 12:43 AM) + + + + | Component | Value | Ref Range | + + + + | GLUCOSE, PLASMA | 102 (H) | 70 - 99 mg/dL | | (LAB) | | | + + + + | BUN, PLASMA (LAB) | 12 | 6 - 20 mg/dL | + + + + | CREATININE PLASMA | 0.57 (L) | 0.70 - 1.30 mg/dL | | (LAB) | | | + + + + | EGFR - | >60 | >60 mL/min | | [facility] | | | + + + + | EGFR NON | >60 | >60 mL/min | | -[place] | | | + + + + | SODIUM, PLASMA (LAB) | 136 | 136 - 145 mmol/L | + + + + | POTASSIUM, PLASMA | 3.7 | 3.4 - 5.0 mmol/L | | (LAB) | | | + + + + | CHLORIDE, PLASMA | 102 | 97 - 108 mmol/L | | (LAB) | | | + + + + | TOTAL CO2, PLASMA | 26 | 21 - 32 mmol/L | | (LAB) | | | + + + + | CALCIUM, PLASMA | 9.2 | 8.6 - 10.2 mg/dL | | (LAB) | | | + + + + | CALCIUM(ALB | 9.4 | 8.6 - 10.2 mg/dL | | CORRECTED) | | | + + + + | BILIRUBIN TOTAL | 14.3 (H) | 0.3 - 1.2 mg/dL | + + + + | TOTAL PROTEIN, | 7.2 | 6.4 - 8.2 g/dL | | PLASMA (LAB) | | | + + + + | ALBUMIN, PLASMA | 3.7 | 3.5 - 4.7 g/dL | | (LAB) | | | + + + + | ALK PHOS | 657 (H) | 53 - 128 U/L | + + + + | AST(SGOT) | 103 (H) | <=41 U/L | + + + + | ALT (SGPT) | 387 (H) | <=60 U/L | + + + + | ANION GAP | 8 | 4 - 11 mmol/L | + + + + | ANION GAP(ALB | 8 | 4 - 11 mmol/L | | [...] | + + + | Blood | [facility] [address] | | | [place] [address] | + + + + + | Narrative | + + | Adult glucose reference range change effective 7-17. GFR is estimated using the | | [...] Rapidly changing kidney function | + + CBC, WITH DIFFERENTIAL (12/03/2017 12:43 AM) + + + | Specimen | Performing Laboratory | + + + | Blood | | + + + + + | Narrative | + + | The following orders were created for panel order CBC, WITH DIFFERENTIAL. | | Procedure | | Abnormality Status | | --------- | | ------ CBC AND AUTO | | DIFF[[id number]] Abnormal Final | | result Please view results for these tests on the | | individual orders. | + + in this encounter Visit Diagnoses + + | Diagnosis | + + | Pancreatic mass - Primary | + + | Unspecified disease of pancreas | + + | Liver mass | + + | Unspecified disorder of liver | + + | Hyperbilirubinemia | + + | Disorders of bilirubin excretion | + + | Obstructive jaundice | + + | Other specified disorders of biliary tract | + + | Pancreatic adenocarcinoma (HCC) | + + | Malignant neoplasm of pancreas, part unspecified | + + Admitting Diagnoses + + | Diagnosis | + + | Hyperbilirubinemia | + + | Disorders of bilirubin excretion | + + | Obstructive jaundice | + + | Other specified disorders of biliary tract | + + | Liver mass | + + | Unspecified disorder of liver | + + | Pancreatic mass | + + | Unspecified disease of pancreas | + + Administered Medications + +---------+ + + +------+ | Medication Order | MAR | Action | Dose | Rate | Site | | | Action | Date | | | | + +---------+ + + +------+ | dextrose 5%-NaCl 0.45% IV | New Bag | | 75 mL/hr | 75 mL/hr | | | infusion 75 mL/hr, intravenous, | | 8 06:00 | | | | | CONTINUOUS, Starting 12/03/17 | | PDT | | | | | at 0515, Until 12/03/17 at | | | | | | | 1117 | | | | | | + +---------+ + + +------+ + + + + +---+ | Rate/Dose Verify | | 75 mL/hr | 75 mL/hr | | | | 8 10:14 | | | | | | PDT | | | | + + + + +---+ +---+---+ | | | +---+---+ + + + +---------+---+-------+ | fentaNYL (DURAGESIC) 12 mcg/hr | Applied | | 1 patch | | Chest | | patch 1 patch 1 patch, | Patch | 8 05:50 | | | | | transdermal, EVERY 72 HOURS, | | PDT | | | | | First dose on 12/03/17 at | | | | | | | 0630, Until Discontinued | | | | | | + + + +---------+---+-------+ + + +---------+---+-------+ | Applied Patch | | 1 patch | | Chest | | | 8 06:26 | | | | | | PDT | | | | + + +---------+---+-------+ +---+---+ | | | +---+---+ + +-------+ +---------+---+---+ | HYDROcodone-acetaminophen | Given | | 2 | | | | (NORCO) 10-325 mg 2 tablet 2 | | 8 14:50 | tablets | | | | tablet, oral, EVERY 4 HOURS | | PDT | | | | | NEEDED, Starting 12/03/17 at | | | | | | | 0507, Until 12/05/17 at 0210, | | | | | | | moderate pain | | | | | | + +-------+ +---------+---+---+ +-------+ +---------+---+---+ | Given | | 2 | | | | | 8 18:47 | tablets | | | | | PDT | | | | +-------+ +---------+---+---+ | Given | | 2 | | | | | 8 22:46 | tablets | | | | | PDT | | | | +-------+ +---------+---+---+ +---+---+ | | | +---+---+ + +-------+ +--------+---+---+ | HYDROmorphone (DILAUDID) | Given | | 0.4 mg | | | | injection 0.2-0.4 mg 0.2-0.4 mg, | | 8 08:19 | | | | | intravenous, EVERY 4 HOURS | | PDT | | | | | NEEDED, Starting 12/05/17 at | | | | | | | 0815, Until 12/05/17 at 1154, | | | | | | | Breakthrough pain | | | | | | + +-------+ +--------+---+---+ +---+---+ | | | +---+---+ + +-------+ +--------+---+---+ | HYDROmorphone (DILAUDID) | Given | | 0.3 mg | | | | injection 0.2-0.6 mg 0.2-0.6 mg, | | 8 23:31 | | | | | intravenous, EVERY 6 HOURS | | PDT | | | | | NEEDED, Starting 12/04/17 at | | | | | | | 1436, Until 12/05/17 at 0803, | | | | | | | severe pain | | | | | | + +-------+ +--------+---+---+ +-------+ +--------+---+---+ | Given | | 0.3 mg | | | | | 8 04:15 | | | | | | PDT | | | | +-------+ +--------+---+---+ +---+---+ | | | +---+---+ + +---------+ +--------+---+---+ | HYDROmorphone (DILAUDID) | IV Push | | 0.5 mg | | | | injection 0.5 mg 0.5 mg, | | 8 01:56 | | | | | intravenous, ONCE, 1 dose, Sat | | PDT | | | | | 12/03/17 at 0230 | | | | | | + +---------+ +--------+---+---+ + +---+ | | | + +---+ | HYDROmorphone injection syrg 1 | | | dose, Starting 12/03/17 at | | | 0153, Until 12/03/17 at 0156 | | + +---+ | | | + +---+ + +-------+ +--------+---+---+ | indomethacin (INDOCIN) | Given | | 100 mg | | | | suppository 100 mg 100 mg, | | 8 13:35 | | | | | rectal, ONCE, 1 dose, 12/05/17 | | PDT | | | | | at 1415 | | | | | | + +-------+ +--------+---+---+ +---+---+ | | | +---+---+ + +---------+ +--------+---+---+ | iohexol (OMNIPAQUE) 350 mg | IV Push | | 125 mL | | | | iodine/mL injection 125 mL 125 | | 8 10:28 | | | | | mL, intravenous, ONCE, 1 dose, | | PDT | | | | | 12/06/17 at 1100 | | | | | | + +---------+ +--------+---+---+ +---+---+ | | | +---+---+ + +-------+ +------+---+---+ | nicotine polacrilex (COMMIT) | Given | | 4 mg | | | | lozenge 4 mg 4 mg, oral, EVERY 1 | | 8 05:33 | | | | | HOUR NEEDED, Starting Sat | | PDT | | | | | 12/03/17 at 0507, Until Tue | | | | | | | 12/06/17 at 1759, Withdrawal | | | | | | | symptoms | | | | | | + +-------+ +------+---+---+ +---+---+ | | | +---+---+ + +-------+ +------+---+---+ | ondansetron (ZOFRAN) tablet 8 | Given | | 8 mg | | | | mg 8 mg, oral, EVERY 12 HOURS | | 8 02:26 | | | | | NEEDED, Starting 12/03/17 at | | PDT | | | | | 0507, Until Tu12/06/17 at 1759, | | | | | | | nausea/vomiting, first line | | | | | | + +-------+ +------+---+---+ +-------+ +------+---+---+ | Given | | 8 mg | | | | | 8 08:45 | | | | | | PDT | | | | +-------+ +------+---+---+ +---+---+ | | | +---+---+ + +-------+ +-------+---+---+ | oxyCODONE (immediate release) | Given | | 15 mg | | | | (ROXICODONE) tablet 10-15 mg | | 8 08:57 | | | | | 10-15 mg, oral, EVERY 3 HOURS | | PDT | | | | | NEEDED, Starting 12/05/17 at | | | | | | | 0815, Until Tue12/05/17 at 1147, | | | | | | | moderate pain | | | | | | + +-------+ +-------+---+---+ +---+---+ | | | +---+---+ + +-------+ +-------+---+---+ | oxyCODONE (immediate release) | Given | | 20 mg | | | | (ROXICODONE) tablet 20 mg 20 mg, | | 8 02:39 | | | | | oral, EVERY 3 HOURS NEEDED, | | PDT | | | | | Starting 12/05/17 at 1146, | | | | | | | Until 12/06/17 at 1759, | | | | | | | moderate pain | | | | | | + +-------+ +-------+---+---+ +-------+ +-------+---+---+ | Given | | 20 mg | | | | | 8 06:28 | | | | | | PDT | | | | +-------+ +-------+---+---+ | Given | | 20 mg | | | | | 8 10:55 | | | | | | PDT | | | | +-------+ +-------+---+---+ +---+---+ | | | +---+---+ + +-------+ +-------+---+---+ | oxyCODONE (immediate release) | Given | | 15 mg | | | | (ROXICODONE) tablet 5-15 mg 5-15 | | 8 05:38 | | | | | mg, oral, EVERY 4 HOURS | | PDT | | | | | NEEDED, Starting 12/05/17 at | | | | | | | 0209, Until 12/05/17 at 0803, | | | | | | | moderate pain | | | | | | + +-------+ +-------+---+---+ +---+---+ | | | +---+---+ + +-------+ +------+---+---+ | polyethylene glycol (MIRALAX) | Given | | 17 g | | | | packet 17 g 17 g, oral, DAILY, | | 8 08:43 | | | | | First dose on 12/03/17 at | | PDT | | | | | 1700, Until Discontinued | | | | | | + +-------+ +------+---+---+ +---+---+ | | | +---+---+ + +-------+ + +---+---+ | senna-docusate (SENOKOT S) | Given | | 1 tablet | | | | 8.6-50 mg 1 tablet 1 tablet, | | 8 08:24 | | | | | oral, TWICE DAILY, First dose on | | PDT | | | | | 12/03/17 at 0900, Until | | | | | | | Discontinued | | | | | | + +-------+ + +---+---+ +-------+ + +---+---+ | Given | | 1 tablet | | | | | 8 22:33 | | | | | | PDT | | | | +-------+ + +---+---+ | Given | | 1 tablet | | | | | 8 08:43 | | | | | | PDT | | | | +-------+ + +---+---+ +---+---+ | | | +---+---+ + +-------+ +-------+---+---+ | simethicone chew (MYLICON) | Given | | 80 mg | | | | tablet 80 mg 80 mg, oral, ONCE, | | 8 10:56 | | | | | 1 dose, 12/06/17 at 1130 | | PDT | | | | + +-------+ +-------+---+---+ +---+---+ | | | +---+---+ in this encounter"
--- OUTSIDE RECORDS SUMMARY | ~2017-12-07 | XMS | Encounter Summary ---
Demographics + + + | Address | [address] | | | [place] [address] | + + + | Home Phone | | + + + | Preferred Language | Unknown | + + + | Marital Status | Unmarried Domestic Partner | + + + | Congregation Affiliation | CHR | + + + | Race | White | + + + | Ethnic Group | Not or | + + + Author + + + | Author | [facility] | + + + | Organization | [facility] | + + + | [...] [place] | | | | | [address] | | + + + + + Care Team Providers + +------+ + | Care Internet Consultant Name | Role | Phone | + +------+ + | Pepe Napier DO | PCP | | + +------+ + Encounter Details +--------+ + + + + | Date | Type | Department | Care Team | Description | +--------+ + + + + | 12/02/ | Outside | Digestive Health | Ronnell Pabon MD | | | 2018 | Referral | Center at [facility] 4th | [address] | | | | Order | Floor [address] [facility] | [address], | | | | | [address] | [place] [address] | | | | | Mailcode: [id number] | [phone] | | | | | Yolanda Naidu | | | | | | [address] [facility] [place] | | | | | | [address] | | | | | | [phone] | | | +--------+ + + + [...] [place] | | | | | | [address] | | | | | | [phone] | | | | | | | | +--------+ + + + + | 12/12/ | Telephone-S | Pre-operative | | | | 2017 | cheduled | Medicine | | | +--------+ + + + + | 12/16/ | Hospital | | Barney Leger, | | | 2018 | Encounter | | [address] | | | | | | [address] | | | | | | [place] | | | | | | [address] | | | | | | [phone] | | | | | | | | +--------+ + + + + | 12/16/ | Appointment | Gastroenterology | Barney Leger, | | | 2017 | | | [address] [facility] | | | | | | [address] | | | | | | [place], [place] | | | | | | [address] | | | | | | [phone] | | | | | | | | +--------+ + + + + + +--------+ + + | Name | Priori | Associated Diagnoses | Order Schedule | | | ty | | | + +--------+ + + | EUS UPPER | Routin | Abnormal findings | Expected: 12/02/2017 | | | e | on diagnostic | | | | | imaging of other | | | | | abdominal regions, | | | | | including | | | | | retroperitoneum | | + +--------+ + + as of this encounter Visit Diagnoses + + | Diagnosis | + + | Abnormal findings on diagnostic imaging of other abdominal regions, including | | retroperitoneum - Primary | + +"
--- OUTSIDE RECORDS SUMMARY | ~2017-12-07 | XMS | Encounter Summary ---
Demographics + + + | Address | [address] | | | [place] [address] | + + + | Home Phone | | + + + | Preferred Language | Unknown | + + + | Marital Status | Unmarried Domestic Partner | + + + | Latter-Day Affiliation | CHR | + + + | Race | White | + + + | Ethnic Group | Not or | + + + Author + + + | Author | [facility] | + + + | Organization | [facility] | + + + | [...] [place] | | | | | [address] | | + + + + + Care Team Providers + +------+ + | Care Contact Manager Name | Role | Phone | [address] | | | | | | [place], [place] | | | | | | [address] | | | | | | [phone] | | | +--------+ + + + [...] [place] | | | | | | [address] | | | | | | [phone] | | | | | | | [...] Rd | | | | | | [place] | | | | | | [address] | | | | | | [phone] | | | | | | | | +--------+ + + + + | 12/16/ | Appointment | Gastroenterology | Barney Leger, | | | 2017 | | | MD [address] | | | | | | [address] | | | | | | [place] | | | | | | [address] | | | | | | [phone] | | | | | | | | +--------+ + + + + as of this encounter Visit Diagnoses Not on filein this encounter"
--- OUTSIDE RECORDS SUMMARY | ~2017-12-07 | XMS | Encounter Summary ---
Demographics + + + | Address | [address] | | | [place] [address] | + + + | Home Phone | | + + + | Preferred Language | Unknown | + + + | Marital Status | Unmarried Domestic Partner | + + + | Restorationist Affiliation | CHR | + + + | Race | White | + + + | Ethnic Group | Not or | + + + Author + + + | Author | [facility] | + + + | Organization | [facility] | + + + | Address | Unknown | + + + | Phone | Unavailable | + + + Support + + + + + | Name | Relationship | Address | Phone | + + + + + | ROXANN ABÑUELOS | ECON | [address] | | | | | # [place] | | | | | [address] | | + + + + + Care Team Providers + +------+ + | Care Water Filter Cleaner Name | Role | Phone | + [...] | | | | | montrell | [address] | | | | | | [facility] | [address] | | | | | | Jaden | [address] | | | | | | CONSULT TO | [place], [place] | | | | | | MEDICAL | [address] | | | | | | GENETICS | Phone: | | | | | | | [phone] | | | | | | | Fax: | | | | | | | [phone] | | + +--------+ + + + [...] [address] | | | | | [place], [place] | [address] | | | 12/06/ | | [address] | [place], [place] | | | 2017 | | [phone] | [address] | | | | | | [phone] | | | | | | | | | | | | Han Wilkes MD | | | | | | [address] | | | | | | [place], | | | | | | [place] [address] | | | | | | [phone] | | | | | | | | | | | | Lucía Alejandre MD | | | | | | [address] | | | | | | [place], | | | | | | [place] [address] | | | | | | [phone] | | | | | | | | | | | | Maureen Fu MD | | | | | | [address] | | | | | | [place], | | | | | | [place] [address] | | | | | | [phone] | | | | | | | [...] for EUS here 12/16/17, and presents to [facility] for acutely worsening abdominal pain and 3 [...] 19-9 >1200. Had an EGD done at [facility] in [facility] without visualized tumor penetrating into antrum or duodenum, no bx taken. On transf er to [facility], his T bili was 14.3 and peaked [...] home fentanyl patch discussed transition from home [place] to oxycodone. On day o f discharge, [...] recent diagnosis, now down to 0.5ppd, cessation [facility] ed Consultants (service/attending name): GI/Dr. Alfaro Blue Surgery/Dr. Puri Images/procedures: US Liver 12/03/17 IMPRESSION: 1. Known pancreatic mass is incompletely evaluated due to bowel gas. 2. Intra-and extrahepatic biliary dilatation is mildly increased since 11/15/2017. 3. Hypoechogenicliver lesions are incompletely evaluated. ERCP & EUS 12/05/17 Findings: The air transport professionals film was normal. The esophagus was successfully [...] Phone Center 12/12/2017 8:30 AM Fang Barton [facility] [place] - Medical Oncology [phone] [facility] 12/12/2017 2:20 PM [facility] PHONE/RN CLIN 3 [facility] Preoperative Medicine Clinic at [facility] 4th Floor Day Stay [phone] [facility] 12/16/2017 12:15 PM [facility]ney Leg[facility] at [facility] 4th Floor [phone] [facility] Additional Instructions/Orders: Diet Regular Regular diet- There are no restrictions to your diet. You may eat or drink whatever you pr efer, though healthy food choices are recommended. Activity No activity restrictions Condition on Discharge Good Who To Call For Problems HOW TO REACH YOUR MEDICINE TEAM WITH QUESTIONS, CONCERNS, OR NEW SYMPTOMS: Thank you for entrusting your care to [facility] Internal Medicine. If you have any problems or concerns before you are able to follow up with your Primary Care Provider, please call and ask the fondant machine operator to page the attending physician, Maureen Fu MD, who was caring for you at discharge. If that physician is not available, ask the fondant machine operator to page t he physician investor relations analyst for the Clinical Hospitalist Service. Call us right away if any of the following occur: -You have new/worsening abdominal pain -You've noticed that you are turning more yellow Discharge Destination: Home Code Status: Full POLST completed: no Discharging Physician: Demian Del Toro MD, PhD Attending Physician: Demian Del Toro MD, PhD I spent more than 33 minutes eshu-uu-uezm with the patient of which greater than [...] may be different from t alysa original. [facility] Progress Note Hospital Day #2 24 Hour [...] Date 12/05/17 0700 - 12/06/17 0659 Shift [phone] [id number] [id number] 24 Hour Total I N T A [...] 19-9 >1200. Had an EGD done at [facility] in [place] without visualized tumor penetrating [...] to home Maureen Fu MD Clinical Hospitalist [facility] [place] Pager [phone] I spent 39 minutes gnns-uf-qmmn with the patient of which 59% was [...] 19-9 >1200. Had an EGD done at [facility] in [place] without visualized tumor penetrating [...] fentanyl patch 12mcg Q72hrs - cont home [place] 10-325mg PO Q4H PRN - start hydromorphone 0.2-0.6mg IV Q6H PRN breakthrough periprocedurally - consider uptitrating fentanyl patch once pain stable after procedure - cont BM regimen, ondansetron - F/U GI recs - F/U [facility] EGD report request # Tobacco use disorder [...] Otoniel Burnett PA-C Clinical Hospitalist Service Pager [phone] I spent 39 minutes cbbv-ca-pxxi with the patient of which greater than [...] today, ERCP on Tuesday. Maureen Fu MD [facility] Clinical and Teaching Hospitalist Services Pager [phone] Otoniel Burnett PA-C - 12/03/2017 6:45 AM PDTFormatting of this note may be different fro m the original. HOSPITALIST PROGRESS NOTE Author: Otoniel Burnett PA-C Attending: Maureen Fu MD Hospital Day: 0 INTERVAL EVENTS - admitted to [facility] for obstructive jaundice - no sepsis on [...] Denies fever and c hills. Lives in [place] with his girlfriend Viola. 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 OBJECTIVE BP 129/77 | Pulse 77 | [...] 19-9 >1200. Had an EGD done at [facility] in [facility] without visualized tumor penetrating into antrum or [...] fentanyl patch 12mcg Q72hrs - cont home [place] 10-325mg PO Q4H PRN - cont BM regimen, ondansetron - F/U GI recs - F/U [facility] EGD report request # Tobacco use disorder [...] Otoniel Burnett PA-C Clinical Hospitalist Service Pager [phone] I spent 39 minutes msbq-ub-agoa with the patient of which greater than [...] an ERCP on Tuesday. Maureen Fu MD [facility] Clinical and Teaching Hospitalist Services Pager [phone] in this encounter Plan of Treatment +--------+ + + + + | Date | Type | Specialty | Care Team | Description | +--------+ + + + + | 12/12/ | Office | Hematology & | Fang Barton, | | | 2017 | Visit | Oncology | [address] | | | | | | [place] | | | | | | [address] | | | | | | [phone] | | | | | | | [...] [address] | | | | | | [place], [place] | | | | | | [address] | | | | | | [phone] | | | | | | | | +--------+ + + + + | 12/16/ | Appointment | Gastroenterology | Barney Leger, | | | 2017 | | | MD [address] | | | | | | [address] | | | | | | [place], [place] | | | | | | [address] | | | | | | [phone] | | | | | | | [...] Laboratory | + + + | | [facility] RADIOLOGY VOICE RECOGNITION | + + + [...] | + + + | Blood | [facility] LABORATORY SERVICES, CORE [address] | | | [place] [address] | + + + COMPLETE METABOLIC SET [...] | >60 | >60 mL/min | | [place] | | | + + + + | EGFR NON | >60 | >60 mL/min | | -[place] | | | + + + + [...] | + + + | Blood | [facility] LAB[facility]ORY SERVICES, CORE [address] | | | [place] [address] | + + + + + | [...] | | ------ CBC (HEMOGRAM) | | ONLY[[id number]] Abnormal Final | | result Please view [...] | + + + | Blood | [facility] LABORATORY SERVICES, CORE [address] | | | [place] [address] | + + + CANCER [facility] GI [...] | + + + | Blood | [facility] LABOR[facility]ORY SERVICES, CORE [address] | | | [place] [address] | + + + ERCP (12/05/2017 2:13 PM) + + + | Specimen | Performing Laboratory | + + + | | [facility] | + + + + + | Narrative | + + | Procedure Date: 12/05/2017 Patient Name: Ronni Napier #: [id number] | | Date of : 1970 CSN: [id number] Admit Type: Inpatient Room: GI 3 | | Procedure: ERCP Indications: Jaundice, 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 The Olympus | | [id number] Duodenoscope #[id number] was | | introduced through the mouth, and advanced to the | | duodenum and used to inject contrast into the | | bile duct. The ERCP was accomplished without | | difficulty. The patient tolerated the | | procedure well. Estimated Blood Loss: Estimated blood loss: none. Findings: | | The air transport professionals film was normal. The esophagus was successfully [...] + + | Aspirate - Pancreas | [facility] DEPARTMENT OF PATHOLOGY [address] | | | [place] [address] | + + + EUS UPPER (12/05/2017 1:38 PM) + + + | Specimen | Performing Laboratory | + + + | | [facility] | + + + + + | Narrative | + + | Procedure Date: 12/05/2017 Patient Name: Ronni Napier #: [id number] | | Date of : 1970 CSN: [id number] Admit Type: Inpatient Room: GI 3 | | Procedure: Upper EUS Indications: Suspected mass in | | pancreas on CT scan Providers: BARNEY LEGER MD (Doctor), | | [place] CROWLEY RN (Nurse), SCOTTY DE LEÓN | | (Headwaitress), DORIS STALLINGS, Headwaitress | | (Headwaitress) Referring MD: AUDI KAMINSKI MD Requesting Provider: [...] after the procedure. The Olympus | | [id number] Therapeutic EUS #[id number] was | | introduced through the mouth, [...] transduodenal approach. A stylet was used. A hospital corpsman was present and | | performed a [...] | + + + | Blood | [facility] LABORATORY SERVICES, CORE [address] [place] [address] | | | [place] [address] | + + + COMPLETE METABOLIC SET [...] | >60 | >60 mL/min | | [place] | | | + + + + | EGFR NON | >60 | >60 mL/min | | -[place] | | | + + + + [...] | + + + | Blood | [facility], CORE [address] | | | [place] [address] | + + + + + | [...] | | ------ CBC (HEMOGRAM) | | ONLY[[id number]] Abnormal Final | | result Please view [...] | + + + | Blood | [facility] LABORATORY SERVICES, CORE [address] | | | [place] [address] | + + + + + | [...] | + + + | Blood | [facility] LABORATORY [facility], CORE [address] | | | [place] [address] | + + + + + | [...] | >60 | >60 mL/min | | [place] | | | + + + + | EGFR NON | >60 | >60 mL/min | | -[place] | | | + + + + [...] | + + + | Blood | [facility], [facility] [address] | | | [place] [address] | + + + + + | [...] | + + + | Blood | [facility], [facility] [address] | | | [place] [address] | + + + + + | [...] | ------ CBC AND AUTO | | DIFF[[id number]] Abnormal Final | | result Please view [...] Laboratory | + + + | | [facility] [address] [place] [address] | | | [place] [address] | + + + AMMONIA, PLASMA (12/03/2017 4:09 AM) + +-------+ + | Component | Value | Ref Range | + +-------+ + | AMMONIA (LAB) | 15 | 11 - 35 umol/L | + +-------+ + + + + | Specimen | Performing Laboratory | + + + | Blood | [facility]ORY SERVICES, CORE [address] | | | [place] [address] | + + + US LIVER (12/03/2017 [...] | + + + | Blood | [facility] LABORATORY [facility], CORE [address] | | | [place] [address] | + + + RAINBOW HOLD TUBE - PURPLE TOP (12/03/2017 12:43 AM) + + + | Specimen | Performing Laboratory | + + + | Blood | [facility] LABORAT[facility], CORE [address] | | | [place] [address] | + + + RAINBOW HOLD TUBE - GREEN TOP (12/03/2017 12:43 AM) + + + | Specimen | Performing Laboratory | + + + | Blood | [facility] LABORATORY [facility], CORE [address] | | | [place] [address] | + + + RAINBOW HOLD TUBE - BLUE TOP (12/03/2017 12:43 AM) + + + | Specimen | Performing Laboratory | + + + | Blood | [facility] LABORATORY [facility], CORE [address] | | | [place] [address] | + + + BLOOD BANK HOLD [...] | + + + | Blood | [facility] LABORATORY SERVICES, TRANSFUSION MEDICINE [address] | | | [place] [address] | + + + RAINBOW HOLD, CORE [...] ------ RAINBOW HOLD | | TUBE - BLUE...[[id number]] Final | | result RAINBOW HOLD TUBE - | | GREE...[[id number]] Final | | result RAINBOW HOLD TUBE - | | PURP...[[id number]] Final | | result RAINBOW HOLD TUBE - RED | | TOP[[id number]] Final | | result Please view results [...] | + + + | Blood | [facility] LABORATORY SERVICES, CORE [address] | | | [place] [address] | + + + + + | [...] | + + + | Blood | [facility] LABORATORY SERVICES, CORE [address] | | | [place] [address] | + + + COMPLETE METABOLIC SET [...] | >60 | >60 mL/min | | [place] | | | + + + + | EGFR NON | >60 | >60 mL/min | | -[place] | | | + + + + [...] | + + + | Blood | [facility] LAB[facility]ATORY [facility] [address] | | | [place] [address] | + + + + + | [...] | ------ CBC AND AUTO | | DIFF[[id number]] Abnormal Final | | result Please view [...]
--- OUTSIDE RECORDS SUMMARY | ~2017-12-07 | XMS | Encounter Summary ---
Demographics + + + | Address | [address] | | | [place] [address] | + + + | Home Phone | | + + + | Preferred Language | Unknown | + + + | Marital Status | Unmarried Domestic Partner | + + + | Episcopalian Affiliation | CHR | + + + | Race | White | + + + | Ethnic Group | Not or | + + + Author + + + | Author | [facility] | + + + | Organization | [facility] | + + + | [...] [place] | | | | | [address] | | + + + + + Care Team Providers + +------+ + | Care Body Sander Name | Role | Phone | + +------+ + PCP | Unavailable | + +------+ + Reason for Visit [...] + + | 12/16/ | Hospital | [facility] [address] | Barney Leger, | | | 2018 | Encounter | [address] | MD [address] | | | | | [facility] | [address] | | | | | [place] | [place], [place] | | | | | (MNP/OLD N) | [address] | | | | | [place] [address] | [phone] | | | | | [phone] | | | +--------+ + + + [...] [address] | | | | | | [facility] [place] | | | | | | [address] | | | | | | [phone] | | | | | | | | +--------+ + + + + | 12/12/ | Telephone-S | Pre-operative | | | | 2017 | cheduled | Medicine | | | +--------+ + + + + | 12/16/ | Hospital | | Barney Leger, | | | 2017 | Encounter | | [address] | | | | | | [address] | | | | | | [place], [place] | | | | | | [address] | | | | | | [phone] | | | | | | | | +--------+ + + + + | 12/16/ | Appointment | Gastroenterology | Barney Leger, | | | 2017 | | | [address] | | | | | | [address] | | | | | | [facility] [place] | | | | | | [address] | | | | | | [phone] | | | | | | | | +--------+ + + + + as of this encounter Visit Diagnoses Not on filein this encounter Admitting Diagnoses + + | Diagnosis | + + | R93.5 (ICD-10-CM) - Abnormal findings on diagnostic imaging of other abdominal regions, | | including retroperitoneum | + +"
--- OUTSIDE RECORDS SUMMARY | ~2017-12-07 | XMS | Encounter Summary ---
Demographics + + + | Address | [address] | | | [place] [address] | + + + | Home Phone | | + + + | Preferred Language | Unknown | + + + | Marital Status | Unmarried Domestic Partner | + + + | Mandaen Affiliation | CHR | + + + | Race | White | + + + | Ethnic Group | Not or | + + + Author + + + | Author | [facility] | + + + | Organization | [facility] | + + + | [...] [place] | | | | | [address] | | + + + + + Care Team Providers + +------+ + | Care Management Professionals Name | Role | Phone | + +------+ + | Pepe Napier DO | PCP | | + +------+ + Reason for Visit + + + | Reason | Comments | + + + | Medical Records | | | Review | | + + + Encounter Details +--------+ + + + + | Date | Type | Department | Care Team | Description | +--------+ + + + + | 12/02/ | Documentati | Digestive Health | Lab, Gi Procedure | Medical Records | | 2018 | on | Center at [facility] 4th | | Review | | | | Floor [address] [facility] | | | | | | [facility] | | | | | | Mailcode: [id number] | | | | | | [facility] | | | | | | [address] [place], [place] | | | | | | [address] | | | | | | [phone] | | | +--------+ + + + [...] [place] | | | | | | [address] | | | | | | [phone] | | | | | | | [...] Rd | | | | | | [place], [place] | | | | | | [address] | | | | | | [phone] | | | | | | | | +--------+ + + + + | 12/16/ | Appointment | Gastroenterology | Barney Leger, | | | 2017 | | | MD [address] | | | | | | [address] | | | | | | [place], [place] | | | | | | [address] | | | | | | [phone] | | | | | | | | +--------+ + + + + as of this encounter Visit Diagnoses Not on filein this encounter"
--- OUTSIDE RECORDS SUMMARY | ~2017-12-07 | XMS | Encounter Summary ---
Demographics + + + | Address | [address] | | | [place] [address] | + + + | Home Phone | | + + + | Preferred Language | Unknown | + + + | Marital Status | Unmarried Domestic Partner | + + + | Faith Affiliation | CHR | + + + | Race | White | + + + | Ethnic Group | Not or | + + + Author + + + | Author | [facility] | + + + | Organization | [facility] | + + + | Address | Unknown | + + + | Phone | Unavailable | + + + Support + + + + + | Name | Relationship | Address | Phone | + + + + + | ROXANN BAÑUELOS | ECON | [address] | | | | | # [place] | | | | | [address] | | + + + + + Care Team Providers + +------+ + | Care Lead Installer Name | Role | Phone | + +------+ + | Pepe Napier DO | PCP | | + +------+ + Encounter Details +--------+ + + + + | Date | Type | Department | Care Team | Description | +--------+ + + + + | 12/02/ | In Store Demonstrator | Digestive Health | Albaro Vences | Pancreatic mass | | 2018 | | Center at [facility] 4th | MD Wenceslao [address] | (Primary Dx) | | | | Floor [address] | [facility] | | | | | [facility] | [place], [place] | | | | | Mailcode: [id number] | [address] | | | | | Yolanda Naidu | [phone] | | | | | [address] [facility] [place] | | | | | | [address] | | | | | | [phone] | | | +--------+ + + + [...] [place] | | | | | | [address] | | | | | | [phone] | | | | | | | | +--------+ + + + + | 12/12/ | Telephone-S | Pre-operative | | | | 2017 | cheduled | Medicine | | | +--------+ + + + + | 12/16/ | Hospital | | Barney Leger, | | | 2017 | Encounter | | [address] [facility] | | | | | | [address] | | | | | | [place], [place] | | | | | | [address] | | | | | | [phone] | | | | | | | | +--------+ + + + + | 12/16/ | Appointment | Gastroenterology | Barney Leger, | | | 2018 | | | [address] | | | | | | [address] | | | | | | [facility] [place] | | | | | | [address] | | | | | | [phone] | | | | | | | [...]
--- OUTSIDE RECORDS SUMMARY | ~2017-12-07 | XMS | Encounter Summary ---
Demographics + + + | Address | [address] | | | [place] [address] | + + + | Home Phone [...] + + + | Author | [facility] | + + + | Organization | [facility] | + + + | Address | Unknown | + + + | Phone | Unavailable | + + + Support + + + + + | Name | Relationship | Address | Phone | + + + + + | ROXANN BAÑUELOS | ECON | [address] | | | | | # [place] | | | | | [address] | | + + + + + Care Team Providers + +------+ + | Care News Producer Name | Role | Phone | + [...] García, | | | 2018 | | [address] | [place] [address] [facility] | | | | | [facility] [address] [facility] | [facility] | | | | | [facility] | [place], [place] | | | | | Mailcode: [id number] | [address] | | | | | Yolanda Naidu | [phone] | | | | | [address] [place], [place] | | | | | | [address] | | | | | | [phone] | | | +--------+ + + + [...] [place] | | | | | | [address] | | | | | | [phone] | | | | | | | [...] Rd | | | | | | [facility] [place] | | | | | | [address] | | | | | | [phone] | | | | | | | | +--------+ + + + + | 12/16/ | Appointment | Gastroenterology | Barney Leger, | | | 2017 | | | [address] | | | | | | [address] | | | | | | [place], [place] | | | | | | [address] | | | | | | [phone] | | | | | | | [...]
--- OUTSIDE RECORDS SUMMARY | ~2017-12-07 | XMS | Clinical Summary ---
Demographics + + + | Address | [address] | | | [place] [address] | + + + | Home Phone | | + + + | Preferred Language | Unknown | + + + | Marital Status | Unmarried Domestic Partner | + + + | Gnosticist Affiliation | CHR | + + + [...] [place] | | | | | [address] | | + + + + + Care Team Providers + +------+ + | Care C Programmer Name | Role | Phone | + +------+ + | Pepe Oakley DO | PP | | + +------+ + Source Comments EDY is fully live on both [facility] Ambulatory and [facility] InPatient.[facility] Allergies No Known Allergies Current Medications + [...] | | presents | | | to [facility] for | | | acutely | | [...] | | | in | | | [place] | | | without | | | visualized | | | tumor | | | penetrating | | | into | | | antrum or | | | duodenum, | | | no bx | | | taken. On | | | transfer | | | to [facility], | | | his T bili | [...] | | from home | | | Antimony to | | | oxycodone. 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 | [...] | | | [phone] | | | [phone] | | | and ask the | | | scouring train operator chief | | | to page the | [...] | | ask the | | | scouring train operator chief to | | | page the | | | physician | | | consulting senior practice director for | | | the | | [...] +--------+ +---+ + + | 12/02/ | Key Account Representative | | Albaro Vences | Pancreatic mass [...] [place] | | | | | | [address] | | | | | | [phone] | | | | | | | [...] Rd | | | | | | [place], [place] | | | | | | [address] | | | | | | [phone] | | | | | | | | +--------+ + + + + | 12/16/ | Appointment | | Barney Leger, | | | 2017 | | | [address] | | | | | | [address] | | | | | | [place], [place] | | | | | | [address] | | | | | | [phone] | | | | | | | [...] | + + + | Blood | [facility] LABORATORY SERVICES, CORE [address] [facility] | | | [facility] [address] | + + + CARCINOEMBRYONIC AG, SERUM (12/06/2017 5:30 AM) + +-------+ + | Component | Value | Ref Range | + +-------+ + | CEA-CARCINOEMBRYONIC | 2.4 | <=2.5 ng/mL | | AG, SERUM | | | + +-------+ + + + + | Specimen | Performing Laboratory | + + + | Blood | [facility], CORE [address] [facility] | | | [place] [address] | + + + COMPLETE METABOLIC SET [...] | >60 | >60 mL/min | | YEMENI | | | + + + + | EGFR NON | >60 | >60 mL/min | | -YEMENI | | | + + + + [...] | + + + | Blood | [facility] LAB[facility]ATORY SERVICES, [facility] [address] [facility] | | | [place] [address] | + + + + + | [...] | + + + | Blood | [facility] LABORATORY SERVICES, CORE [address] [place] [address] | | | [place] [address] | + + + CBC ONLY (12/06/2017 [...] | | ------ CBC (HEMOGRAM) | | ONLY[[id number]] Abnormal Final | | result Please view results for these tests on the | | individual orders. 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 The Olympus | | [id number]-[id number] Duodenoscope #[id number] was | | introduced through the mouth, and advanced to the | | duodenum and used to inject contrast into the | | bile duct. The ERCP was accomplished without | | difficulty. The patient tolerated the | | procedure well. Estimated Blood Loss: Estimated blood loss: none. Findings: | | The door worker film was normal. The esophagus was successfully [...] | | | | Case seen by:BOB Morley([facility]) - | | | | CytotechnologistScarlotta Ann [...] + + | Aspirate - Pancreas | [facility] DEPARTMENT OF PATHOLOGY [address] [place] [address] | | | [place] [address] | + + + EUS UPPER (12/05/2017 1:38 PM) + + + | Specimen | Performing Laboratory | + + + | | [facility] | + + + + + | Narrative | + + | Procedure Date: 12/05/2017 Patient Name: Ronni Barclay Order #: [id number] | | Date of : 1970 CSN: [id number] Admit Type: Inpatient Room: GI 3 | | Procedure: Upper EUS Indications: Suspected mass in | | pancreas on CT scan Providers: BARNEY LEGER MD (Doctor), | | [place] CROWLEY RN (Nurse), SCOTTY DE LEÓN | | (Digital Account Supervisor), DORIS STALLINGS, Digital Account Supervisor | | (Digital Account Supervisor) Referring MD: AUDI KAMINSKI MD Requesting Provider: [...] after the procedure. The Olympus | | [id number] Therapeutic EUS #[id number] was | | introduced through the mouth, [...] transduodenal approach. A stylet was used. A iron pellet tester was present and | | performed a [...] | | the entire procedure. MD BARNEY Casrto MD 12/05/2017 2:51:32 PM | | This [...] | + + + | Blood | [facility] LABORATORY SERVICES, CORE [address] [facility] | | | [place] [address] | + + + + + | [...] | + + + | Blood | [facility] LABORATORY SERVICES, CORE [address] | | | [place] [address] | + + + + + | [...] recent of 2 results within the ti wv period is included. + + + | Specimen | Performing Laboratory | + + + | Blood | | + + + + + | Narrative | + + | The following orders were created for panel order CBC, WITH DIFFERENTIAL. | | Procedure | | Abnormality Status | | --------- | | ------ CBC AND AUTO | | DIFF[[id number]] Abnormal Final | | result Please view [...] | + + + | Blood | [facility] LABORATORY SERVICES, CORE [address] | | | [place] [address] | + + + + + | [...] Laboratory | + + + | | [facility] [address] [place] [address] | | | [place] [address] | + + + AMMONIA, PLASMA (12/03/2017 4:09 AM) + +-------+ + | Component | Value | Ref Range | + +-------+ + | AMMONIA (LAB) | 15 | 11 - 35 umol/L | + +-------+ + + + + | Specimen | Performing Laboratory | + + + | Blood | [facility] LABORATORY SERVICES, CORE [address] | | | [place] [address] | + + + US LIVER (12/03/2017 2:40 AM) + + + | Specimen | Performing Laboratory | + + + | | [facility] RADIOLOGY VOICE RECOGNITION | + + + [...] | + + + | Blood | [facility] [employer], CORE [address] [facility] [address] [facility] | | | [place] [address] | + + + RAINBOW HOLD TUBE - PURPLE TOP (12/03/2017 12:43 AM) + + + | Specimen | Performing Laboratory | + + + | Blood | [facility] [employer], CORE [address] | | | [place] [address] | + + + RAINBOW HOLD TUBE - GREEN TOP (12/03/2017 12:43 AM) + + + | Specimen | Performing Laboratory | + + + | Blood | [facility] LABORATORY [facility], CORE [address] [facility] | | | [place] [address] | + + + RAINBOW HOLD TUBE - BLUE TOP (12/03/2017 12:43 AM) + + + | Specimen | Performing Laboratory | + + + | Blood | [facility], CORE [address] [facility] | | | [place] [address] | + + + GU[facility] DAS, CORE [...] ------ RAINBOW HOLD | | TUBE - BLUE...[[id number]] Final | | result RAINBOW HOLD TUBE - | | GREE...[[id number]] Final | | result RAINBOW HOLD TUBE - | | PURP...[[id number]] Final | | result RAINBOW HOLD TUBE - RED | | TOP[[id number]] Final | | result Please view results [...] | + + + | Blood | [facility] LABORATORY SERVICES, [facility] [address] [place] [address] | | | [place] [address] | + + + LIPASE, PLASMA (12/03/2017 12:43 AM) + +--------+ + | Component | Value | Ref Range | + +--------+ + | LIPASE (LAB) | 59 (L) | 152 - 353 U/L | + +--------+ + + + + | Specimen | Performing Laboratory | + + + | Blood | [facility], CORE [address] | | | [place] [address] | + + + from Last 3 Months"
--- OUTSIDE RECORDS SUMMARY | ~2017-12-07 | XMS | Encounter Summary ---
Demographics + + + | Address | [address] | | | [place] [address] | + + + | Home Phone | | + + + | Preferred Language | Unknown | + + + | Marital Status | Unmarried Domestic Partner | + + + | Rastafari Affiliation | CHR | + + + | Race | White | + + + | Ethnic Group | Not or | + + + Author + + + | Author | [facility] | + + + | Organization | [facility] | + + + | [...] [place] | | | | | [address] | | + + + + + Care Team Providers + +------+ + | Care Ditch Digger Name | Role | Phone | + [...] 2018 | Referral | Center at [facility] 4th | [address] | | | | Order | Floor [address] [facility] | [address], | | | | | [facility] [address] | [place] [address] | | | | | Mailcode: UHN83 | [phone] | | | | | [place] | | | | | | [address] [facility] [place] | | | | | | [address] | | | | | | [phone] | | | +--------+ + + + [...] [place] | | | | | | [address] | | | | | | [phone] | | | | | | | [...] Rd | | | | | | [place] | | | | | | [address] | | | | | | [phone] | | | | | | | | +--------+ + + + + | 12/16/ | Appointment | Gastroenterology | Barney Leger, | | | 2017 | | | [address] [facility] | | | | | | [address] | | | | | | [place], [place] | | | | | | [address] | | | | | | [phone] | | | | | | | [...]
--- OUTSIDE RECORDS SUMMARY | ~2017-12-07 | XMS | Encounter Summary ---
Demographics + + + | Address | [address] | | | [place] [address] | + + + | Home Phone | | + + + | Preferred Language | Unknown | + + + | Marital Status | Unmarried Domestic Partner | + + + | Adventism Affiliation | CHR | + + + | Race | White | + + + | Ethnic Group | Not or | + + + Author + + + | Author | [facility] | + + + | Organization | [facility] | + + + | Address | Unknown | + + + | Phone | Unavailable | + + + Support + + + + + | Name | Relationship | Address | Phone | + + + + + | ROXANN BAÑUELOS | ECON | [address] | | | | | # [place] | | | | | [address] | | + + + + + Care Team Providers + +------+ + | Care Business Information Consultant Name | Role | Phone | [...] [address] | | | | | | [place], [place] | | | | | | [address] | | | | | | [phone] | | | +--------+ + + + [...] [place] | | | | | | [address] | | | | | | [phone] | | | | | | | [...] Rd | | | | | | [place] | | | | | | [address] | | | | | | [phone] | | | | | | | | +--------+ + + + + | 12/16/ | Appointment | Gastroenterology | Barney Leger, | | | 2017 | | | MD [address] | | | | | | [address] | | | | | | [place] | | | | | | [address] | | | | | | [phone] | | | | | | | | +--------+ + + + + as of this encounter Visit Diagnoses Not on filein this encounter"
--- OUTSIDE RECORDS SUMMARY | ~2017-12-07 | XMS | Encounter Summary ---
Demographics + + + | Address | [address] | | | [place] [address] | + + + | Home Phone | | + + + | Preferred Language | Unknown | + + + | Marital Status | Unmarried Domestic Partner | + + + | Religion Affiliation | CHR | + + + | Race | White | + + + | Ethnic Group | Not or | + + + Author + + + | Author | [facility] | + + + | Organization | [facility] | + + + | Address | Unknown | + + + | Phone | Unavailable | + + + Support + + + + + | Name | Relationship | Address | Phone | + + + + + | ROXANN BAÑUELOS | ECON | [address] | | | | | # [place] | | | | | [address] | | + + + + + Care Team Providers + +------+ + | Care Shoe Singer Name | Role | Phone | + [...] [address] | | | | | | [place], [place] | | | | | | [address] | | | | | | [phone] | | | +--------+ + + + [...] [place] | | | | | | [address] | | | | | | [phone] | | | | | | | [...] Rd | | | | | | [place] | | | | | | [address] | | | | | | [phone] | | | | | | | | +--------+ + + + + | 12/16/ | Appointment | Gastroenterology | Barney Leger, | | | 2017 | | | MD [address] | | | | | | [address] | | | | | | [place] | | | | | | [address] | | | | | | [phone] | | | | | | | | +--------+ + + + + as of this encounter Visit Diagnoses Not on filein this encounter"
--- OUTSIDE RECORDS SUMMARY | ~2017-12-07 | XMS | Encounter Summary ---
Demographics + + + | Address | [address] | | | [place] [address] | + + + | Home Phone | | + + + | Preferred Language | Unknown | + + + | Marital Status | Unmarried Domestic Partner | + + + | Evangelical Affiliation | CHR | + + + | Race | White | + + + | Ethnic Group | Not or | + + + Author + + + | Author | [facility] | + + + | Organization | [facility] | + + + | Address | Unknown | + + + | Phone | Unavailable | + + + Support + + + + + | Name | Relationship | Address | Phone | + + + + + | ROXANN BAÑUELOS | ECON | [address] | | | | | # [place] | | | | | [address] | | + + + + + Care Team Providers + +------+ + | Care Process Manufacturing Engineer Name | Role | Phone | + [...] on | Center at [facility] 4th | | Review | | | | Floor [address] [facility] | | | | | | [facility] | | | | | | Mailcode: [id number] | | | | | | [facility] | | | | | | [address] [place], [place] | | | | | | [address] | | | | | | [phone] | | | +--------+ + + + [...] [place] | | | | | | [address] | | | | | | [phone] | | | | | | | [...] Rd | | | | | | [place], [place] | | | | | | [address] | | | | | | [phone] | | | | | | | | +--------+ + + + + | 12/16/ | Appointment | Gastroenterology | Barney Leger, | | | 2017 | | | MD [address] | | | | | | [address] | | | | | | [place], [place] | | | | | | [address] | | | | | | [phone] | | | | | | | | +--------+ + + + + as of this encounter Visit Diagnoses Not on filein this encounter"
--- OUTSIDE RECORDS SUMMARY | ~2017-12-07 | XMS | Encounter Summary ---
Demographics + + + | Address | [address] | | | [place] [address] | + + + | Home Phone | | + + + | Preferred Language | Unknown | + + + | Marital Status | Unmarried Domestic Partner | + + + | Gnosticism Affiliation | CHR | + + + | Race | White | + + + | Ethnic Group | Not or | + + + Author + + + | Author | [facility] | + + + | Organization | [facility] | + + + | [...] [place] | | | | | [address] | | + + + + + Care Team Providers + +------+ + | Care Fleet Driver Name | Role | Phone | + [...] | 2018 | Referral | Center at [facility] 4th | [address] | | | | Order | Floor [address] | [facility] | | | | | [facility] | [place], [place] | | | | | Mailcode: [id number] | [address] | | | | | Yolanda Na[place]u | [phone] | | | | | [address] [place], [place] | | | | | | [address] | | | | | | [phone] | | | +--------+ + + + [...] | | | | | | [facility], [place] | | | | | | [address] | | | | | | [phone] | | | | | | | | +--------+ + + + + | 12/12/ | Telephone-S | Pre-operative | | | | 2017 | [facility] | Medicine | | | +--------+ + + + + | 12/16/ | Hospital | | Barney Leger, | | | 2017 | Encounter | | MD [address] | | | | | | [address] | | | | | | [place] | | | | | | [address] | | | | | | [phone] | | | | | | | | +--------+ + + + + | 12/16/ | Appointment | Gastroenterology | Barney Leger, | | | 2017 | | | [address] | | | | | | [address] | | | | | | [place] | | | | | | [address] | | | | | | [phone] | | | | | | | | +--------+ + + + + as of this encounter Results ERCP (12/05/2017 2:13 PM) + + + | Specimen | Performing Laboratory | + + + | | [facility] | + + + + + | Narrative | + + | Procedure Date: 12/05/2017 Patient Name: Ronni Napier #: [id number] | | Date of : 1970 CSN: [id number] Admit Type: Inpatient Room: GI 3 | | Procedure: ERCP Indications: Jaundice, Malignant | | tumor of the head of pancreas Providers: BARNEY LEGER MD | | (Doctor), [place] CROWLEY RN (Nurse), SCOTTY | | (Leasing Property Manager), DORIS STLALINGS, | | Leasing Property Manager (Leasing Property Manager) Referring MD: AUDI KAMINSKI MD Requesting | [...] procedure. The Olympus | | TJF-[id number] Duodenoscope #[id number] was | | introduced through the mouth, and advanced to the | | duodenum and used to inject contrast into the | | bile duct. The ERCP was accomplished without | | difficulty. The patient tolerated the | | procedure well. Estimated Blood Loss: Estimated blood loss: none. Findings: | | The remote sensing engineer film was normal. The esophagus was successfully [...] Date: 12/05/2017 Patient Name: Ronni Napier #: [id number] | | Date of : 1970 CSN: [id number] Admit Type: Inpatient Room: GI 3 | | Procedure: Upper EUS Indications: Suspected mass in | | pancreas on CT scan Providers: BARNEY LEGER MD (Doctor), | | [place] CROWLEY RN (Nurse), SCOTTY DE LEÓN | | (Leasing Property Manager), DORIS STALLINGS, Leasing Property Manager | | (Leasing Property Manager) Referring MD: AUDI KAMINSKI MD Requesting Provider: [...] after the procedure. The Olympus | | [id number] Therapeutic EUS #[id number] was | | introduced through the mouth, [...] transduodenal approach. A stylet was used. A train electronic technician was present and | | performed a [...]
--- OUTSIDE RECORDS SUMMARY | ~2017-12-07 | XMS | Encounter Summary ---
Demographics + + + | Address | [address] | | | [place] [address] | + + + | Home Phone | | + + + | Preferred Language | Unknown | + + + | Marital Status | Unmarried Domestic Partner | + + + | Sikhism Affiliation | CHR | + + + | Race | White | + + + | Ethnic Group | Not or | + + + Author + + + | Author | [facility] | + + + | Organization | [facility] | + + + [...] [place] | | | | | [address] | | + + + + + Care Team Providers + +------+ + | Care Cigar Wrapper Name | Role | Phone | + +------+ + PCP | Unavailable | + +------+ + Encounter Details +--------+ + + + + | Date | Type | Department | Care Team | Description | +--------+ + + + + | 12/12/ | Telephone-S | Preoperative | | | | 2018 | cheduled | Medicine Clinic at | | | | | | [facility] | | | | | | Stay [address] | | | | | | [facility] | | | | | | Mailcode: [id number] | | | | | | Yolanda Naidu | | | | | | [address] [place], [place] | | | | | | [address] | | | | | | [phone] | | | +--------+ + + + [...] [place] | | | | | | [address] | | | | | | [phone] | | | | | | | [...] [address] | | | | | | [place] | | | | | | [address] | | | | | | [phone] | | | | | | | | +--------+ + + + + | 12/16/ | Appointment | Gastroenterology | Barney Leger, | | | 2017 | | | [address] | | | | | | [address] | | | | | | [place] | | | | | | [address] | | | | | | [phone] | | | | | | | | +--------+ + + + + as of this encounter Visit Diagnoses Not on filein this encounter"
--- OUTSIDE RECORDS SUMMARY | ~2017-12-07 | XMS | Encounter Summary ---
Demographics + + + | Address | [address] | | | [place] [address] | + + + | Home Phone | | + + + | Preferred Language | Unknown | + + + | Marital Status | Unmarried Domestic Partner | + + + | Hinduism Affiliation | CHR | + + + | Race | White | + + + | Ethnic Group | Not or | + + + Author + + + | Author | [facility] | + + + | Organization | [facility] | + + + | [...] [place] | | | | | [address] | | + + + + + Care Team Providers + +------+ + | Care Sales Training Manager Name | Role | Phone | [...] [address] | | | | | | [facility] | | | | | | Mailcode: [id number] | | | | | | Yolanda Naidu | | | | | | [address] [place], [place] | | | | | | [address] | | | | | | [phone] | | | +--------+ + + + [...] [place] | | | | | | [address] | | | | | | [phone] | | | | | | | [...] [place] | | | | | | [address] | | | | | | [phone] | | | | | | | | +--------+ + + + + | 12/16/ | Appointment | Gastroenterology | Barney Leger, | | | 2017 | | | [address] | | | | | | [address] | | | | | | [place] | | | | | | [address] | | | | | | [phone] | | | | | | | | +--------+ + + + + as of this encounter Visit Diagnoses Not on filein this encounter"
--- OUTSIDE RECORDS SUMMARY | ~2017-12-07 | XMS | Encounter Summary ---
Demographics + + + | Address | [address] | | | [place] [address] | + + + | Home Phone [...] [place] | | | | | [address] | | + + + + + Care Team Providers + +------+ + | Care Inspector Floor Name | Role | Phone | + [...] + + | 12/16/ | Hospital | [facility] [address] | Barney Leger, | | | 2018 | Encounter | [address] | MD [address] | | | | | [facility] | [address] | | | | | JANINE SCHWARTZ | [place], [place] | | | | | (MNP/OLD N) | [address] | | | | | [place] [address] | [phone] | | | | | [phone] | | | +--------+ + + + [...] | | | | | | [facility] [place] | | | | | | [address] | | | | | | [phone] | | | | | | | | +--------+ + + + + | 12/12/ | Telephone-S | Pre-operative | | | | 2017 | cheduled | Medicine | | | +--------+ + + + + | 12/16/ | Hospital | | Barney Leegr, | | | 2017 | Encounter | | [address] | | | | | | [address] | | | | | | [place], [place] | | | | | | [address] | | | | | | [phone] | | | | | | | | +--------+ + + + + | 12/16/ | Appointment | Gastroenterology | Barney Leger, | | | 2017 | | | [address] | | | | | | [address] | | | | | | [facility] [place] | | | | | | [address] | | | | | | [phone] | | | | | | | | +--------+ + + + + as of this encounter Visit Diagnoses Not on filein this encounter Admitting Diagnoses + + | Diagnosis | + + | R93.5 (ICD-10-CM) - Abnormal findings on diagnostic imaging of other abdominal regions, | | including retroperitoneum | + +"
== END ==
LOC: ED 09:05
DX: R10.9 Unspecified abdominal pain (principal); C25.9 Malignant neoplasm of pancreas, unspecified; F17.200 Nicotine dependence, unspecified, uncomplicated; Z79.899 Other long term (current) drug therapy
CPT/HCPCS: 80053; 81001; 82140; 83605; 85025; 87040; 96374; 96375; 96376; 99283; J1170; J2405